=== PATIENT | female | born 1955 | race African-American/Black ===

== ENCOUNTER 2019-10-17 17:10 | Inpatient (IN) | payer MEDICARE, OTHER ==
[2019-10-17] MEDS ORDERED: ACETAMINOPHEN 325 MG TABLET PO ONE (17:58)
--- NOTE | 2019-10-17 18:25 | RADIOLOGY REPORT (SQ) ---
EXAM DESCRIPTION: HIP LEFT AP/LATERAL COMPLETED DATE/TIME: 10/17/2019 6:06 pm REASON FOR STUDY: fall COMPARISON: None. NUMBER OF VIEWS: Two views. TECHNIQUE: AP pelvis and additional frog-leg view of the left hip. LIMITATIONS: None. FINDINGS: MINERALIZATION: Normal. LEFT HIP: There is a low intertrochanteric fracture of the left hip RIGHT HIP: No fracture or dislocation. No worrisome bone lesions. PUBIS AND ISCHIUM: No fracture. PELVIS: No fracture. SACRUM: No fracture or dislocation. No worrisome bone lesions. LOWER LUMBAR SPINE: No fracture or dislocation. No worrisome bone lesions. No significant disc disea se. SOFT TISSUES: Calcified uterine fibroids. OTHER: No other significant finding. IMPRESSION: Low intertrochanteric fracture of the left hip. TECHNICAL DOCUMENTATION: JOB ID: [id number] 2010 [employer]- All Rights Reserved Reading location - IP/workstation name: [email or web address]
--- NOTE | 2019-10-17 18:26 | RADIOLOGY REPORT (SQ) ---
EXAM DESCRIPTION: FEMUR LEFT COMPLETED DATE/TIME: 10/17/2019 6:06 pm REASON FOR STUDY: fall COMPARISON: None. NUMBER OF VIEWS: Two views. TECHNIQUE: Two radiographic images acquired of the left femur to include hip and knee in at least on e projection. LIMITATIONS: None. FINDINGS: MINERALIZATION: Normal. BONES: Low intertrochanteric fracture of the left hip. No additional femoral fracture. SOFT TISSUES: No obvious swelling or foreign body. OTHER: No other significant finding. IMPRESSION: Left hip fracture. No additional femoral fracture. TECHNICAL DOCUMENTATION: JOB ID: [id number] 2010 [employer]- All Rights Reserved Reading location - IP/workstation name: [email or web address]
[2019-10-17] MEDS ORDERED: ONDANSETRON HCL INJ/PF 4 MG/2 ML SDV IV ONE (19:51)
[2019-10-17] MEDS ORDERED: MORPHINE SULFATE 10 MG/ML INJ IV ONE (19:51)
--- NOTE | 2019-10-17 19:58 | ER Document Report ---
ED Medical Screen (RME) - General Chief Complaint: Fall Stated Complaint: FALL/LEG PAIN Primary Care Provider: HIPOLITO MILLAN PA-C [Primary Care Provider] - Follow up as needed TRAVEL OUTSIDE OF THE [place] IN LAST 30 DAYS: No - HPI Notes: 10/17/19 19:58 64-year-old female with history of Parkinson to the emergency department via EMS with complaints of left hip pain. She was at her adult care today when she got hung up in a chair and fell down onto the left hip. No other injuries. No loss of consciousness. She is not on any blood thinners. She has not eaten since noon. She states that she feels most comfortable when her leg is propped with a pillow. I performed a brief medical screening exam on the patient determined that she will need further evaluation by me inside physician. Noted left lesser intertrochanteric hip fracture. Went ahead and ordered 4 mg of morphine and 4 mg of Zofran for the patient. Labs have been ordered. Advise family that attending physician will be in to see her shortly. - Related Data Allergies/Adverse Reactions: shellfish derived Allergy (Verified 10/17/19 17:38) Physical Exam - Vital signs Vitals: Temp Pulse Resp BP Pulse Ox 97.6 F 81 17 163/95 H 100 10/17/19 17:35 10/17/19 17:35 10/17/19 17:35 10/17/19 17:35 10/17/19 17:35 Course - Vital Signs Vital signs: Temp Pulse Resp BP Pulse Ox 97.6 F 81 17 163/95 H 100 10/17/19 17:35 10/17/19 17:35 10/17/19 17:35 10/17/19 17:35 10/17/19 17:35 Doctor's Discharge - Discharge Referrals: HIPOLITO MILLAN PA-C [Primary Care Provider] - Follow up as needed
--- NOTE | 2019-10-17 20:45 | ER Document Report ---
ED General - General Chief Complaint: Fall Stated Complaint: FALL/LEG PAIN Time Seen by Provider: 10/17/19 19:53 Primary Care Provider: HIPOLITO MILLAN PA-C [Primary Care Provider] - Follow up as needed TRAVEL OUTSIDE OF THE [place] IN LAST 30 DAYS: No - HPI Notes: Patient is a 64-year-old female with a history of Parkinson's disease. She was at the [facility] today when she tripped. She did not hit her head. She did not lose consciousness. She complains of pain in her left hip. She really cannot rate the pain for me. Otherwise, according the patient and family, she i s been eating and drinking well lately. No other acute complaints or concerns. She currently puts her pain at a 3 out of 5. - Related Data Allergies/Adverse Reactions: shellfish derived Allergy (Verified 10/17/19 17:38) Home Medications: Seroquel, Namenda, Aricept, carbidopa/levodopa Past Medical History - General Information source: Patient, Relative - Social History Smoking Status: Unknown if Ever Smoked Family History: Reviewed & Not Pertinent Patient has suicidal ideation: No Patient has homicidal ideation: No Neurological Medical History: Reports: Hx Parkinson's Disease Psychiatric Medical History: Reports: Hx Dementia Review of Systems - Review of Systems Musculoskeletal: See HPI -: Yes All other systems reviewed and negative Physical Exam - Vital signs Vitals: Temp Pulse Resp BP Pulse Ox 97.6 F 81 17 163/95 H 100 10/17/19 17:35 10/17/19 17:35 10/17/19 17:35 10/17/19 17:35 10/17/19 17:35 - Notes Notes: Is a very pleasant 64-year-old female who appears her stated age, no acute distress. She has the flat expression of Parkinson's, answers questions slowly, moves slowly. Vital signs reviewed, please refer to chart. Head is normocephalic, atraumatic. Pupils equal round, reactive to light. Neck is supple without meningismus. Heart is regular rate and rhythm. Lungs are clear to auscultation bilaterally. Abdomen is soft, nontender, normoactive bowel sounds throughout. Extremities without cyanosis, clubbing. Posterior calves are nontender. Peripheral pulses are equal. Patient has shortening and internal rotation of the left lower extremity. She is tender over the left greater trochanter. She has no bony tenderness to the lower femur or posterior calf. Neurovascularly intact distally. Skin is warm and dry. Course - Re-evaluation Re-evalutation: 10/17/19 20:44 This is a 64-year-old female who presents to the emergency department for evaluation after a fall. Her only known medical history is that of Parkinson's. She is given IV pain medication with some relief. Her imaging reveals intertrochanteric left hip fracture. She is neurovascularly intact distally. Preop clearance labs and EKG were ordered. Patient is stable at this time. Awaiting results. 10/17/19 21:54 Laboratory investigations largely unremarkable. Patient remained stable, her pain is improved after morphine. I spoke with Dr. Hooks, he will admit the patient for further care. - Vital Signs Vital signs: Temp Pulse Resp BP Pulse Ox 97.6 F 88 17 143/86 H 99 10/17/19 17:35 10/17/19 20:00 10/17/19 20:05 10/17/19 20:00 10/17/19 20:05 - Laboratory Result Diagrams: 10/17/19 20:21 10/17/19 20:21 Laboratory results interpreted by me: 10/17/19 10/17/19 20:21 20:21 WBC 14.8 H RDW 14.6 H Lymph % (Auto) 11.6 L [place] % (Auto) 16.8 H Absolute Neuts (auto) 10.5 H Absolute Monos (auto) 2.5 H Creatinine 0.51 L - Diagnostic Test Radiology reviewed: Reports reviewed Radiology results interpreted by me: 10/17/19 21:54 Femur X-Ray 10/17/19 17:47 IMPRESSION: Left hip fracture. No additional femoral fracture. Hip X-Ray 10/17/19 17:48 IMPRESSION: Low intertrochanteric fracture of the left hip. Discharge - Discharge Clinical Impression: Closed intertrochanteric fracture of left hip Condition: Stable Disposition: ADMITTED INPATIENT Admitting Provider: Dr. Hooks Unit Admitted: Medical Floor Referrals: HIPOLITO MILLAN PA-C [Primary Care Provider] - Follow up as needed
[2019-10-17 21:05] LABS: ABSOLUTE EOSINOPHILS # (AUTO) 0.1 10^3/uL (0.0-0.6); ABSOLUTE LYMPHOCYTES (AUTO) 1.7 10^3/uL (0.5-4.7); ABSOLUTE MONOCYTES (AUTO) 2.5 10^3/uL (0.1-1.4); ABSOLUTE NEUT (AUTO) 10.5 10^3/uL (1.7-8.2); BASOPHILS % (AUTO) 0.3 % (0-2); EOSINOPHILS % (AUTO) 0.4 % (0-6); HEMATOCRIT 41.4 % (36.0-47.0); HEMOGLOBIN 14.1 g/dL (12.0-15.5); LYMPHOCYTES % (AUTO) 11.6 % (13-45); MEAN CORPUSCULAR HEMOGLOBIN 27.4 pg (27.0-33.4); MEAN CORPUSCULAR VOLUME 81 fl (80-97); MONOCYTES % (AUTO) 16.8 % (3-13); PLATELET COUNT 188 10^3/uL (150-450); RED BLOOD COUNT 5.15 10^6/uL (3.72-5.28); RED CELL DISTRIBUTION WIDTH 14.6 % (11.5-14.0); SEGMENTED NEUTROPHILS % (AUTO) 70.9 % (42-78); TOTAL CELLS COUNTED % (AUTO) 100 %; WHITE BLOOD COUNT 14.8 10^3/uL (4.0-10.5)
[2019-10-17 21:16] LABS: ALBUMIN 4.2 g/dL (3.5-5.0); ALKALINE PHOSPHATASE 79 U/L (38-126); ANION GAP 9 (5-19); ASPARTATE AMINO TRANSFERASE 26 U/L (14-36); BILIRUBIN,DIRECT 0.3 mg/dL (0.0-0.4); BILIRUBIN,TOTAL 0.4 mg/dL (0.2-1.3); BLOOD UREA NITROGEN 10 mg/dL (7-20); CALCIUM 9.6 mg/dL (8.4-10.2); CARBON DIOXIDE 29 mmol/L (22-30); CHLORIDE 101 mmol/L (98-107); CREATINE KINASE 52 U/L (30-135); GLUCOSE 95 mg/dL (75-110); INTERNATIONAL RATION (INR) 1.11; PROTHROMBIN TIME 14.3 SEC (11.4-15.4); TOTAL PROTEIN 7.8 g/dL (6.3-8.2)
[2019-10-17] MEDS ORDERED: MORPHINE SULFATE 10 MG/ML INJ IV PRN (21:45)
[2019-10-17] MEDS ORDERED: DEXTROSE 5%-1/2 NORMAL SALINE 1,000 ML IV ONE (21:48)
[2019-10-18] MEDS ORDERED: ONDANSETRON 4 MG TAB.RAPDIS SL PRN (00:46)
[2019-10-18] MEDS: RINGERS SOLUTION,LACTATED 1,000 ML IV PRN ×3 (01:05→22:40)
[2019-10-18] MEDS ORDERED: INFLUENZA QUAD (6MOS+) 2019-20 VAC 0.5 ML SYR IM ONE (04:12)
[2019-10-18] MEDS: MORPHINE SULFATE 10 MG/ML INJ IV PRN ×2 (04:23→18:38)
--- NOTE | 2019-10-18 07:07 | PDOC H&P ---
History of Present Illness Admission Date/PCP: 10/17/19 22:33 HIPOLITO MILLAN PA-C History of Present Illness: SOCORRO BENSON is a 64 year old female 64-year-old black female who fell and sustained a left hip injury. She was brought to the emergency room where a intratrochanteric femur fracture was identified. She admitted to the orthopedic service for fracture management. Past Medical History Cardiac Medical History: Reports: None Pulmonary Medical History: Reports: None Neurological Medical History: Reports: Other - Parkinson's Endocrine Medical History: Reports: None Malignancy Medical History: Reports: None Psychiatric Medical History: Reports: None, Dementia Past Surgical History Past Surgical History: Reports: None Social History Information Source: Patient, [facility] Records Smoking Status: Unknown if Ever Smoked Electronic Cigarette use?: No Frequency of Alcohol Use: None Hx Recreational Drug Use: No Hx Prescription Drug Abuse: No - Advance Directive Resuscitation Status: Full Code Family History Family History: Reviewed & Not Pertinent Parental Family History Reviewed: No Children Family History Reviewed: No Sibling(s) Family History Reviewed.: No Medication/Allergy Home Medications: Carbidopa/Levodopa [Carbidopa-Levo 25-100 mg Odt] 1 each PO QID 10/18/19 Donepezil HCl 10 mg PO 10/18/19 Quetiapine Fumarate [Seroquel 25 mg Tablet] 25 mg PO QHS 10/18/19 Allergies/Adverse Reactions: shellfish derived Allergy (Verified 10/17/19 17:38) Review of Systems ROS unobtainable: Due to mental status Physical Exam Vital Signs: Temp Pulse Resp BP Pulse Ox 36.8 C 85 19 123/80 97 10/18/19 03:52 10/18/19 03:52 10/18/19 03:52 10/18/19 03:52 10/18/19 03:52 Intake & Output 10/17/19 10/18/19 10/19/19 06:59 06:59 06:59 Intake Total 197 Output Total 250 Balance -53 Weight 48.7 kg Physical Exam: Thin middle-aged black female lying in a hospital bed. Patient is nonresponsive to verbal stimuli. Eyes are open. General appearance: PRESENT: no acute distress Head exam: PRESENT: normocephalic Respiratory exam: PRESENT: unlabored Cardiovascular exam: PRESENT: RRR Pulses: PRESENT: +1 pedal pulses bilateral Vascular exam: PRESENT: normal capillary refill GI/Abdominal exam: PRESENT: soft Rectal exam: PRESENT: deferred Extremities exam: PRESENT: other - Left lower extremity rotated and shortened. There is brisk capillary refill. Results Laboratory Results: 10/17/19 20:21 10/17/19 20:21 10/17/19 10/17/19 20:21 20:21 WBC 14.8 H RBC 5.15 Hgb 14.1 Hct 41.4 MCV 81 MCH 27.4 MCHC 34.0 RDW 14.6 H Plt Count 188 Seg Neutrophils % 70.9 Sodium 139.3 Potassium 4.0 Chloride 101 Carbon Dioxide 29 Anion Gap 9 BUN 10 Creatinine 0.51 L Est GFR ( Amer) > 60 Glucose 95 Calcium 9.6 Total Bilirubin 0.4 AST 26 Alkaline Phosphatase 79 Total Protein 7.8 Albumin 4.2 10/17/19 10/17/19 20:21 20:21 Creatine Kinase 52 CK-MB (CK-2) 0.55 Impressions: Femur X-Ray 10/17/19 17:47 IMPRESSION: Left hip fracture. No additional femoral fracture. Hip X-Ray 10/17/19 17:48 IMPRESSION: Low intertrochanteric fracture of the left hip. Status: Imported from PACS Assessment & Plan - Diagnosis (1) Parkinsons disease Is this a current diagnosis for this admission?: Yes Plan: Baseline (2) Closed intertrochanteric fracture of left hip Qualifiers: Encounter type: initial encounter Fracture alignment: displaced Qualified Code(s): S72.142A - Displaced intertrochanteric fracture of left femur, initial encounter for closed fracture Is this a current diagnosis for this admission?: Yes Plan: Plan for open reduction internal fixation when OR is available and cleared by anesthesia - Time Time Spent: 50 to 70 Minutes Anticipated discharge: SNF Within: when bed available
[2019-10-18] MEDS ORDERED: CEFAZOLIN SODIUM 2 GM in DEXTROSE 5%-WATER 100 ML IV PRN (07:32)
[2019-10-18] MEDS ORDERED: TRANEXAMIC ACID INJ/PF 1,000 MG/10 ML SDV IV PRN (07:33)
[2019-10-18] MEDS ORDERED: BUPIVACAINE HCL 0.5%-EPI 1:200000 INJ/PF 30 ML VIAL ONE (13:35)
[2019-10-18] MEDS ORDERED: KETAMINE HCL INJ 500 MG/10 ML VIAL ONE (14:03)
[2019-10-18] MEDS ORDERED: PROPOFOL INJ 200 MG/20 ML VIAL IV ONE (14:04)
[2019-10-18] MEDS ORDERED: MIDAZOLAM 2 MG/2 ML INJ ONE (14:04)
[2019-10-18] MEDS ORDERED: ONDANSETRON HCL INJ/PF 4 MG/2 ML SDV ONE (14:04)
[2019-10-18] MEDS ORDERED: CEFAZOLIN INJ 1 GM VIAL ONE (14:32)
[2019-10-18] MEDS ORDERED: TRANEXAMIC ACID INJ/PF 1,000 MG/10 ML SDV ONE (14:39)
--- NOTE | 2019-10-18 16:01 | Operative Report ---
Operative Report DATE OF SURGERY: 10/18/19 PREOPERATIVE DIAGNOSIS: Left intratrochanteric femur fracture OPERATION: Open reduction internal fixation left intratrochanteric femur fracture SURGEON: KRISTEN LUDWIG ANESTHESIA: Spinal ESTIMATED BLOOD LOSS: [place] 5 PROCEDURE: With the patient supine on the fracture table the left lower extremities admitted to light under fluoroscopic guidance to effect a near anatomic reduction. Subsequently the lower extremities prepped and draped in a sterile fashion. A pin is placed percutaneously through the greater trochanter down into the proximal femoral metadiaphysis. A combined reamer is used to fashion a cortical opening. Hardware is removed. A ball-tipped guide rods placed down the femur. It is flexibly reamed until a 12 mm reamer is passed. Subsequently a Rogerson gamma 3 11 mm x 130 degree x 360 mm nail is a passed over the ball-tipped guide sara for a proximal interlock. A proximal interlock is placed with an 80 mm 10 mm screw. A distal interlock is placed with a 37.5 mm x 5 mm screw. The construct is again reviewed fluoroscopically both for fracture reduction hardware placement and felt to be adequate. Instrumentation was removed. Incisions irrigated with bulb lavage. The closure was erupted Vicryl followed by franklin. A sterile compressive dressing was applied and the patient was returned to the PACU in satisfactory condition.
[2019-10-18] MEDS ORDERED: ONDANSETRON 4 MG TAB.RAPDIS PO PRN (16:19)
--- NOTE | 2019-10-18 16:52 | RADIOLOGY REPORT (SQ) ---
EXAM DESCRIPTION: FEMUR LEFT; NO CHG FLUORO COMPLETED DATE/TIME: 10/18/2019 4:30 pm REASON FOR STUDY: HIP NAILING COMPARISON: None. FLUOROSCOPY TIME: 0.9 minutes Spot images saved to PACS. TECHNIQUE: Intra-operative images acquired during surgical procedure to evaluate progress. NUMBER OF IMAGES: 11 LIMITATIONS: None. FINDINGS: Fluoroscopy was provided for intraoperative procedure. Please refer to the operative repo rt for further discussion. IMPRESSION: IMAGE(S) OBTAINED DURING PROCEDURE. COMMENT: Quality ID [id number]: Final reports for procedures using fluoroscopy that document radiation exp osure indices, or exposure time and number of fluorographic images (if radiation exposure indices are not available) Please consult full operative report of the attending physician for description of the procedure. TECHNICAL DOCUMENTATION: JOB ID: [id number] 2010 [employer]- All Rights Reserved Reading location - IP/workstation name: [email or web address]
--- NOTE | 2019-10-18 16:52 | RADIOLOGY REPORT (SQ) ---
EXAM DESCRIPTION: FEMUR LEFT; NO CHG FLUORO COMPLETED DATE/TIME: 10/18/2019 4:30 pm REASON FOR STUDY: HIP NAILING COMPARISON: None. FLUOROSCOPY TIME: 0.9 minutes Spot images saved to PACS. TECHNIQUE: Intra-operative images acquired during surgical procedure to evaluate progress. NUMBER OF IMAGES: 11 LIMITATIONS: None. FINDINGS: Fluoroscopy was provided for intraoperative procedure. Please refer to the operative repo rt for further discussion. IMPRESSION: IMAGE(S) OBTAINED DURING PROCEDURE. COMMENT: Quality ID [id number]: Final reports for procedures using fluoroscopy that document radiation exp osure indices, or exposure time and number of fluorographic images (if radiation exposure indices are not available) Please consult full operative report of the attending physician for description of the procedure. TECHNICAL DOCUMENTATION: JOB ID: [id number] 2010 [employer]- All Rights Reserved Reading location - IP/workstation name: [email or web address]
--- NOTE | 2019-10-18 17:23 | EKG REPORT ---
SEVERITY:- BORDERLINE ECG - SINUS RHYTHM BORDERLINE R WAVE PROGRESSION, ANTERIOR LEADS BORDERLINE T ABNORMALITIES, ANTERIOR LEADS : Confirmed by: Mariann Kemp MD 18-Oct-2019 17:22:48
[2019-10-18] MEDS: ASPIRIN 81 MG TABLET, ENT COATED PO SCH (17:28)
[2019-10-18 18:44] LABS: HEMATOCRIT 37.4 % (36.0-47.0); HEMOGLOBIN 12.9 g/dL (12.0-15.5); MEAN CORPUSCULAR HEMOGLOBIN 27.8 pg (27.0-33.4); MEAN CORPUSCULAR HGB CONC 34.6 g/dL (32.0-36.0); MEAN CORPUSCULAR VOLUME 80 fl (80-97); PLATELET COUNT 164 10^3/uL (150-450); RED BLOOD COUNT 4.66 10^6/uL (3.72-5.28); RED CELL DISTRIBUTION WIDTH 14.5 % (11.5-14.0); WHITE BLOOD COUNT 12.4 10^3/uL (4.0-10.5)
[2019-10-18] MEDS: CEFAZOLIN SODIUM 2 GM in DEXTROSE 5%-WATER 100 ML IV SCH (22:28)
[2019-10-19] MEDS: MORPHINE SULFATE 10 MG/ML INJ IV PRN ×2 (04:39→15:17)
[2019-10-19] MEDS: RINGERS SOLUTION,LACTATED 1,000 ML IV PRN ×2 (04:40→21:29)
[2019-10-19] MEDS: CEFAZOLIN SODIUM 2 GM in DEXTROSE 5%-WATER 100 ML IV SCH (05:08)
--- NOTE | 2019-10-19 06:30 | PDOC PROGRESS REPORT ---
Subjective Progress Note for:: 10/19/19 Reason For Visit: CLOSED INTERTROCHANTERIC FRACTURE TO LEFT HIP 64-year-old black female now postop day 1 status post ORIF of a left intratrochanteric femur fracture. No events overnight. Daughter at bedside. Physical Exam Vital Signs: Temp Pulse Resp BP Pulse Ox 37.0 C 100 16 131/81 H 99 10/18/19 23:49 10/19/19 02:00 10/18/19 23:49 10/18/19 23:49 10/18/19 23:49 Intake & Output 10/17/19 10/18/19 10/19/19 06:59 06:59 06:59 Intake Total 197 4100 Output Total 250 900 Balance -53 3200 Weight 48.7 kg 46.1 kg Physical Exam: Patient resting comfortably General appearance: PRESENT: no acute distress, thin Respiratory exam: PRESENT: unlabored Cardiovascular exam: PRESENT: RRR Pulses: PRESENT: +1 pedal pulses bilateral Vascular exam: PRESENT: normal capillary refill GI/Abdominal exam: PRESENT: soft Rectal exam: PRESENT: deferred Musculoskeletal exam: PRESENT: other - Left lower extremity dressings clean dry and intact Results Laboratory Results: 10/18/19 18:29 10/18/19 18:29 WBC 12.4 H RBC 4.66 Hgb 12.9 Hct 37.4 MCV 80 MCH 27.8 MCHC 34.6 RDW 14.5 H Plt Count 164 10/17/19 10/17/19 20:21 20:21 Creatine Kinase 52 CK-MB (CK-2) 0.55 Impressions: Hip X-Ray 10/17/19 17:48 IMPRESSION: Low intertrochanteric fracture of the left hip. Femur X-Ray 10/18/19 00:00 IMPRESSION: IMAGE(S) OBTAINED DURING PROCEDURE. Fluoroscopy 10/18/19 00:00 IMPRESSION: IMAGE(S) OBTAINED DURING PROCEDURE. Status: Imported from PACS Assessment & Plan - Diagnosis (1) Parkinsons disease Is this a current diagnosis for this admission?: Yes (2) Closed intertrochanteric fracture of left hip Qualifiers: Encounter type: initial encounter Fracture alignment: displaced Qualified Code(s): S72.142A - Displaced intertrochanteric fracture of left femur, initial encounter for closed fracture Is this a current diagnosis for this admission?: Yes Plan: Mobilize with physical therapy and weightbearing as tolerated basis. Anticipate the need for senior living facility placement. - Time Time Spent with patient: 15-24 minutes Anticipated discharge: SNF Within: when bed available
[2019-10-19 06:54] LABS: ANION GAP 11 (5-19); BLOOD UREA NITROGEN 9 mg/dL (7-20); CALCIUM 8.6 mg/dL (8.4-10.2); CARBON DIOXIDE 24 mmol/L (22-30); CHLORIDE 102 mmol/L (98-107); GLUCOSE 94 mg/dL (75-110); POTASSIUM 3.7 mmol/L (3.6-5.0)
[2019-10-19] MEDS ORDERED: ACETAMINOPHEN 325 MG TABLET PO PRN ×2 (09:00→09:30)
[2019-10-19] MEDS ORDERED: ACETAMINOPHEN 650 MG SUPP.RECT PR PRN (09:30)
[2019-10-19] MEDS ORDERED: QUETIAPINE FUMARATE 25 MG TABLET PO PRN (14:06)
[2019-10-19] MEDS ORDERED: CARBIDOPA/LEVODOPA 25-100 MG TABLET PO SCH ×2 (14:30→22:00)
[2019-10-19] MEDS: CARBIDOPA/LEVODOPA 25-100 MG TABLET PO SCH (17:17)
[2019-10-19] MEDS: MEMANTINE HCL 10 MG TABLET PO SCH (17:19)
[2019-10-19] MEDS: ASPIRIN 81 MG TABLET, ENT COATED PO SCH (17:22)
[2019-10-19] MEDS ORDERED: (PENDING PHARMACY ID) (Memantine Hcl [Namenda] 5 MG) PO SCH (18:00)
[2019-10-20] MEDS: RINGERS SOLUTION,LACTATED 1,000 ML IV PRN (06:13)
[2019-10-20] MEDS: CARBIDOPA/LEVODOPA 25-100 MG TABLET PO SCH ×3 (06:14→17:25)
[2019-10-20] MEDS: MEMANTINE HCL 10 MG TABLET PO SCH ×2 (09:29→17:25)
[2019-10-20] MEDS: DONEPEZIL HCL 5 MG TABLET PO SCH (09:29)
[2019-10-20] MEDS ORDERED: (PENDING PHARMACY ID) (Donepezil Hcl [Donepezil Hcl] 10 MG) PO SCH (10:00)
--- NOTE | 2019-10-20 11:43 | PDOC TRANSFER SUMMARY ---
Impression - Admit/DC Date/PCP Admission Date/Primary Care Provider: 10/17/19 22:33 HIPOLITO MILLAN PA-C Discharge Date: 10/20/19 - Discharge Diagnosis (1) Parkinsons disease Is this a current diagnosis for this admission?: Yes (2) Closed intertrochanteric fracture of left hip Is this a current diagnosis for this admission?: Yes - Additional Information Resuscitation Status: Full Code Discharge Diet: Regular Discharge Activity: Balance Activity w/Rest, No tub bath Referrals: HIPOLITO MILLAN PA-C [Primary Care Provider] - Follow up as needed Home Medications: Donepezil HCl 10 mg PO DAILY 10/18/19 Memantine HCl [Namenda] 5 mg PO BID 10/18/19 Quetiapine Fumarate [Seroquel 25 mg Tablet] 25 mg PO HSP PRN MDD MAX OF 100MG 10/18/19 Carbidopa/Levodopa [Sinemet 25-100 mg Tablet] 1 each PO BID@0600,1200 10/19/19 Carbidopa/Levodopa [Sinemet 25-100 mg Tablet] 2 each PO QPM 10/19/19 History of Present Illiness History of Present Illness: 64-year-old black female who fell at home and sustained a left hip injury. She was brought to the emergency room where displaced left intratrochanteric femur fracture was identified. She is admitted to the orthopedic service for fracture management. Hospital Course Hospital Course: Patient is taken to the operating room on the day following admission and undergoes uncomplicated open reduction internal fixation of the left intratrochanteric femur fracture. She is returned to the floor in satisfactory condition. Progress with physical therapy is relatively limited. Physical Exam Vital Signs: Temp Pulse Resp BP Pulse Ox 36.4 C 91 18 135/85 H 96 10/20/19 08:28 10/20/19 08:28 10/20/19 08:28 10/20/19 08:28 10/20/19 08:28 Intake & Output 10/19/19 10/20/19 10/21/19 06:59 06:59 06:59 Intake Total 4100 2400 Output Total 900 Balance 3200 2400 Weight 46.1 kg 47.2 kg General appearance: PRESENT: no acute distress, thin Head exam: PRESENT: normocephalic Respiratory exam: PRESENT: unlabored Cardiovascular exam: PRESENT: RRR Pulses: PRESENT: +1 pedal pulses bilateral Vascular exam: PRESENT: normal capillary refill GI/Abdominal exam: PRESENT: soft Rectal exam: PRESENT: deferred Musculoskeletal exam: PRESENT: other - Left lower extremity dressings are clean dry and intact. Leg lengths equal. Minimal pedal edema. Neurological exam: PRESENT: awake Skin exam: PRESENT: dry, intact, warm. ABSENT: cyanosis, rash Results Laboratory Results: WBC 12.4 10^3/uL (4.0-10.5) H 10/18/19 18:29 RBC 4.66 10^6/uL (3.72-5.28) 10/18/19 18:29 Hgb 12.9 g/dL (12.0-15.5) 10/18/19 18: Hct 37.4 % (36.0-47.0) 10/18/19 18: MCV 80 fl (80-97) 10/18/19 18: MCH 27.8 pg (27.0-33.4) 10/18/19 18: MCHC 34.6 g/dL (32.0-36.0) 10/18/19 18: RDW 14.5 % (11.5-14.0) H 10/18/19 18: Plt Count 164 10^3/uL (150-450) 10/18/19 18: Lymph % (Auto) 11.6 % (13-45) L 10/17/19 20:21 [place] % (Auto) 16.8 % (3-13) H 10/17/19 20:21 Eos % (Auto) 0.4 % (0-6) 10/17/19 20:21 Baso % (Auto) 0.3 % (0-2) 10/17/19 20:21 Absolute Neuts (auto) 10.5 10^3/uL (1.7-8.2) H 10/17/19 20:21 Absolute Lymphs (auto) 1.7 10^3/uL (0.5-4.7) 10/17/19 20:21 Absolute Monos (auto) 2.5 10^3/uL (0.1-1.4) H 10/17/19 20:21 Absolute Eos (auto) 0.1 10^3/uL (0.0-0.6) 10/17/19 20:21 Absolute Basos (auto) 0.0 10^3/uL (0.0-0.2) 10/17/19 20:21 Seg Neutrophils % 70.9 % (42-78) 10/17/19 20:21 PT 14.3 SEC (11.4-15.4) 10/17/19 20:21 INR 1.11 10/17/19 20:21 Sodium 136.8 mmol/L (137-145) L 10/19/19 05:44 Potassium 3.7 mmol/L (3.6-5.0) 10/19/19 05:44 Chloride 102 mmol/L (98-107) 10/19/19 05:44 Carbon Dioxide 24 mmol/L (22-30) 10/19/19 05:44 Anion Gap 11 (5-19) 10/19/19 05:44 BUN 9 mg/dL (7-20) 10/19/19 05:44 Creatinine 0.56 mg/dL (0.52-1.25) 10/19/19 05:44 Est GFR ( Amer) > 60 (>60) 10/19/19 05:44 Est GFR (MDRD) Non-Af > 60 (>60) 10/19/19 05:44 Glucose 94 mg/dL (75-110) 10/19/19 05:44 POC Glucose 92 mg/dL (70-110) 10/18/19 11:41 Calcium 8.6 mg/dL (8.4-10.2) 10/19/19 05:44 Total Bilirubin 0.4 mg/dL (0.2-1.3) 10/17/19 20:21 Direct Bilirubin 0.3 mg/dL (0.0-0.4) 10/17/19 20:21 Neonat Total Bilirubin Not Reportable 10/17/19 20:21 Neonat Direct Bilirubin Not Reportable 10/17/19 20:21 Neonat Indirect Bili Not Reportable 10/17/19 20:21 AST 26 U/L (14-36) 10/17/19 20:21 ALT 9 U/L (<35) 10/17/19 20:21 Alkaline Phosphatase 79 U/L (38-126) 10/17/19 20:21 Creatine Kinase 52 U/L (30-135) 10/17/19 20:21 CK-MB (CK-2) 0.55 ng/mL (<4.55) 10/17/19 20:21 Total Protein 7.8 g/dL (6.3-8.2) 10/17/19 20:21 Albumin 4.2 g/dL (3.5-5.0) 10/17/19 20:21 10/17/19 20:21 CK-MB (CK-2) 0.55 Impressions: Femur X-Ray 10/17/19 17:47 IMPRESSION: Left hip fracture. No additional femoral fracture. Hip X-Ray 10/17/19 17:48 IMPRESSION: Low intertrochanteric fracture of the left hip. Femur X-Ray 10/18/19 00:00 IMPRESSION: IMAGE(S) OBTAINED DURING PROCEDURE. Fluoroscopy 10/18/19 00:00 IMPRESSION: IMAGE(S) OBTAINED DURING PROCEDURE. Plan Plan of Treatment: Patient can be weightbearing as tolerated with physical therapy. Follow-up with Dr. Hooks and [facility] for surgery in 2 weeks for staple removal. Stroke Is this a Stroke Patient?: No Stroke Pt being discharged on Anti-thrombolytic therapy?: Yes Acute Heart Failure - Is this a Heart Failure Patient?: No
[2019-10-20] MEDS: TRAMADOL HCL 50 MG TABLET PO PRN ×2 (15:05→21:43)
[2019-10-20] MEDS: ASPIRIN 81 MG TABLET, ENT COATED PO SCH (17:25)
[2019-10-20 23:13] LABS: APPEARANCE,URINE CLEAR; BILIRUBIN,URINE NEGATIVE (NEGATIVE); COLOR,URINE YELLOW; GLUCOSE, URINE NEGATIVE (NEGATIVE); KETONES,URINE TRACE mg/dL (NEGATIVE); LEUKOCYTE ESTERASE,URINE NEGATIVE (NEGATIVE); NITRITE,URINE NEGATIVE (NEGATIVE); PROTEIN,URINE NEGATIVE (NEGATIVE); URINE SPECIFIC GRAVITY 1.012
--- NOTE | 2019-10-20 23:18 | RADIOLOGY REPORT (SQ) ---
EXAM DESCRIPTION: XR CHEST 1 VIEW COMPLETED DATE/TME: 10/20/2019 22:39 CLINICAL HISTORY: 64 years Female, change in vitals COMPARISON: None. NUMBER OF VIEWS/TECHNIQUE: 1/AP FINDINGS: Increased lung volume, clear parenchyma, normal cardiac silhouette, and intact bony thorax.Atherosclerotic vascular disease. IMPRESSION: No acute cardiopulmonary findings.
[2019-10-21] MEDS: CARBIDOPA/LEVODOPA 25-100 MG TABLET PO SCH ×5 (05:10→19:30)
--- NOTE | 2019-10-21 06:15 | PDOC PROGRESS REPORT ---
Subjective Progress Note for:: 10/21/19 Reason For Visit: CLOSED INTERTROCHANTERIC FRACTURE TO LEFT HIP 64 yo BF s/p ORIF L hip fx. Low grade temp o/n. CXR, UA neg Physical Exam Vital Signs: Temp Pulse Resp BP Pulse Ox 36.9 C 95 16 117/80 94 10/21/19 03:33 10/21/19 03:33 10/21/19 03:33 10/21/19 03:33 10/21/19 03:33 Intake & Output 10/19/19 10/20/19 10/21/19 06:59 06:59 06:59 Intake Total 4100 2400 1371 Output Total 900 Balance 3200 2400 1371 Weight 46.1 kg 47.2 kg 44.7 kg Results Laboratory Results: 10/18/19 18:29 10/19/19 05:44 10/20/19 22:41 Urine Color YELLOW Urine Appearance CLEAR Urine pH 7.0 Ur Specific [place] 1.012 Urine Protein NEGATIVE Urine Glucose (UA) NEGATIVE Urine Ketones TRACE H Urine Blood NEGATIVE Urine Nitrite NEGATIVE Ur Leukocyte Esterase NEGATIVE Urine WBC (Auto) 6 Urine RBC (Auto) 1 10/17/19 10/17/19 20:21 20:21 Creatine Kinase 52 CK-MB (CK-2) 0.55 Impressions: Hip X-Ray 10/17/19 17:48 IMPRESSION: Low intertrochanteric fracture of the left hip. Femur X-Ray 10/18/19 00:00 IMPRESSION: IMAGE(S) OBTAINED DURING PROCEDURE. Fluoroscopy 10/18/19 00:00 IMPRESSION: IMAGE(S) OBTAINED DURING PROCEDURE. Chest X-Ray 10/20/19 22:39 IMPRESSION: No acute cardiopulmonary findings. Status: Imported from PACS Assessment & Plan - Diagnosis (1) Parkinsons disease Is this a current diagnosis for this admission?: Yes (2) Closed intertrochanteric fracture of left hip Qualifiers: Encounter type: initial encounter Fracture alignment: displaced Qualified Code(s): S72.142A - Displaced intertrochanteric fracture of left femur, initial encounter for closed fracture Is this a current diagnosis for this admission?: Yes Plan: mobilize with PT WBAT - Time Time Spent with patient: 15-24 minutes Anticipated discharge: SNF Within: when bed available
[2019-10-21] MEDS ORDERED: NALOXONE HCL INJ/PF 0.4 MG/1 ML SDV ONE (06:35)
[2019-10-21] MEDS ORDERED: NALOXONE HCL INJ 2 MG/2 ML DISP.SYRIN IV ONE (06:45)
[2019-10-21 06:58] LABS: HEMATOCRIT 31.8 % (36.0-47.0); HEMOGLOBIN 10.9 g/dL (12.0-15.5); MEAN CORPUSCULAR HEMOGLOBIN 27.5 pg (27.0-33.4); MEAN CORPUSCULAR HGB CONC 34.2 g/dL (32.0-36.0); MEAN CORPUSCULAR VOLUME 80 fl (80-97); PLATELET COUNT 152 10^3/uL (150-450); RED BLOOD COUNT 3.96 10^6/uL (3.72-5.28); RED CELL DISTRIBUTION WIDTH 14.2 % (11.5-14.0); WHITE BLOOD COUNT 11.7 10^3/uL (4.0-10.5)
[2019-10-21] MEDS ORDERED: NALOXONE HCL INJ/PF 0.4 MG/1 ML SDV IV ONE (07:00)
[2019-10-21 07:17] LABS: ALBUMIN 3.1 g/dL (3.5-5.0); ALKALINE PHOSPHATASE 64 U/L (38-126); ASPARTATE AMINO TRANSFERASE 29 U/L (14-36); BILIRUBIN,TOTAL 0.6 mg/dL (0.2-1.3); BLOOD UREA NITROGEN 5 mg/dL (7-20); CALCIUM 8.4 mg/dL (8.4-10.2); CARBON DIOXIDE 28 mmol/L (22-30); CHLORIDE 106 mmol/L (98-107); CREATINE KINASE 426 U/L (30-135); GLUCOSE 99 mg/dL (75-110); POTASSIUM 3.8 mmol/L (3.6-5.0); TOTAL PROTEIN 6.1 g/dL (6.3-8.2)
[2019-10-21 07:23] LABS: ABSOLUTE LYMPHOCYTES# (MANUAL) 4.7 10^3/uL (0.5-4.7); ABSOLUTE MONOCYTES # (MANUAL) 1.4 10^3/uL (0.1-1.4); BASOPHILS % (MANUAL) 0 % (0-2); EOSINOPHILS % (MANUAL) 0 % (0-6); LYMPHOCYTES % (MANUAL) 14 % (13-45); MONOCYTES % (MANUAL) 12 % (3-13); SEGMENTED NEUTROPHILS % (MAN) 48 % (42-78); TOTAL CELLS COUNTED 100
[2019-10-21 07:24] LABS: PLATELET COMMENT ADEQUATE; RBC MORPHOLOGY COMMENT NORMO-CYTIC/CHROMIC; TOXIC VACUOLATION PRESENT
[2019-10-21 07:27] LABS: ANION GAP 4 (5-19)
[2019-10-21 07:41] LABS: TROPONIN I < 0.012 ng/mL
--- NOTE | 2019-10-21 07:45 | RADIOLOGY REPORT (SQ) ---
EXAM DESCRIPTION: CT HEAD WITHOUT IV CONTRAST COMPLETED DATE/TME: 10/21/2019 06:39 CLINICAL HISTORY: 64 years, Female, Change LOC COMPARISON: None. TECHNIQUE: Axial CT images of the brain were obtained without contrast. Sagittal and coronal reformats were performed. [facility] 1203 Images stored on PACS. All CT scanners at this facility use dose modulation, iterative reconstruction, and/or weight based dosing when appropriate to reduce radiation dose to as low as reasonably achievable (ALARA). [facility]: Dose Right [facility]: CareDose [facility]: Dose Right [facility]: Teradose 4D [facility]: [employer] LIMITATIONS: None. FINDINGS: There is no acute cortical infarct, hemorrhage, mass, edema, hydrocephalus, or extra-axial fluid collection. The cantor-white matter differentiation is preserved. There is mild diffuse cerebral atrophy with mild periventricular and deep white matter chronic microvascular changes. The paranasal sinuses and mastoid air cells are clear. There is no acute fracture. IMPRESSION: No acute intracranial abnormality TECHNICAL DOCUMENTATION: Quality ID # 436: Final reports with documentation of one or more dose reduction techniques (e.g., Automated exposure control, adjustment of the mA and/or kV according to patient size, use of iterative reconstruction technique) copyright 2011 248 [employer]- All Rights Reserved
[2019-10-21] MEDS: MEMANTINE HCL 10 MG TABLET PO SCH ×4 (10:35→19:30)
[2019-10-21] MEDS: DONEPEZIL HCL 5 MG TABLET PO SCH (10:36)
[2019-10-21 13:24] LABS: CREATINE KINASE MB 0.76 ng/mL (<4.55)
[2019-10-21 13:29] LABS: TROPONIN I < 0.012 ng/mL
[2019-10-21] MEDS: ASPIRIN 81 MG TABLET, ENT COATED PO SCH ×3 (18:22→19:29)
[2019-10-21 19:55] LABS: CREATINE KINASE MB 0.81 ng/mL (<4.55)
[2019-10-21 19:56] LABS: TROPONIN I < 0.012 ng/mL
[2019-10-21] MEDS: QUETIAPINE FUMARATE 100 MG TABLET PO PRN (20:55)
[2019-10-21] MEDS: RINGERS SOLUTION,LACTATED 1,000 ML IV PRN (21:17)
--- NOTE | 2019-10-22 06:47 | PDOC PROGRESS REPORT ---
Subjective Progress Note for:: 10/22/19 Reason For Visit: CLOSED INTERTROCHANTERIC FRACTURE TO LEFT HIP 64-year-old black female status post open reduction internal fixation of a left intratrochanteric lecture. Events yesterday at approximately 630 are noted with a change in mental status. Agnes Cespedes's note indicates that I was contacted and on did not respond. There is no message on my phone nor is her any record of a call going through the hospital rotary pump operator at that time. Patient underwent a laboratory evaluation which was entirely normal and a head CT scan ordered by Dr. Rios did the head CT scan demonstrated no acute changes. The events yesterday are primarily what seems to be a change in mental status. He reports to me this morning that the patient's alert and oriented in terms of place and events. The family is quite concerned about the patient's change in mental status, lack of appetite, and constipation. The patient has been restarted on maintenance IV fluids. Physical Exam Vital Signs: Temp Pulse Resp BP Pulse Ox 36.7 C 101 H 18 147/89 H 97 10/22/19 03:36 10/22/19 03:36 10/22/19 03:36 10/22/19 03:36 10/22/19 03:36 Intake & Output 10/20/19 10/21/19 10/22/19 06:59 06:59 06:59 Intake Total 2400 1371 1300 Balance 2400 1371 1300 Weight 47.2 kg 44.7 kg 44.7 kg General appearance: PRESENT: no acute distress Head exam: PRESENT: normocephalic Respiratory exam: PRESENT: unlabored Cardiovascular exam: PRESENT: RRR Pulses: PRESENT: +1 pedal pulses bilateral Vascular exam: PRESENT: normal capillary refill GI/Abdominal exam: PRESENT: soft Rectal exam: PRESENT: deferred Extremities exam: PRESENT: other - Left lower extremity incisions are clean dry and intact with franklin. Neurological exam: PRESENT: awake Results Laboratory Results: 10/21/19 06:42 10/21/19 06:42 10/21/19 10/21/19 10/21/19 06:42 06:42 06:42 WBC 11.7 H RBC 3.96 Hgb 10.9 L Hct 31.8 L MCV 80 MCH 27.5 MCHC 34.2 RDW 14.2 H Plt Count 152 Seg Neutrophils % Not Reportable Sodium 138.3 Potassium 3.8 Chloride 106 Carbon Dioxide 28 Anion Gap 4 L BUN 5 L Creatinine 0.44 L Est GFR ( Amer) > 60 Glucose 99 Calcium 8.4 Magnesium 2.1 Total Bilirubin 0.6 AST 29 Alkaline Phosphatase 64 Total Protein 6.1 L Albumin 3.1 L 10/17/19 10/17/19 10/21/19 20:21 20:21 06:42 Creatine Kinase 52 426 H CK-MB (CK-2) 0.55 Troponin I 10/21/19 10/21/19 10/21/19 06:42 12:47 12:47 Creatine Kinase 391 H CK-MB (CK-2) 1.00 0.76 Troponin I < 0.012 < 0.012 10/21/19 10/21/19 18:33 18:33 Creatine Kinase 381 H CK-MB (CK-2) 0.81 Troponin I < 0.012 Impressions: Hip X-Ray 10/17/19 17:48 IMPRESSION: Low intertrochanteric fracture of the left hip. Femur X-Ray 10/18/19 00:00 IMPRESSION: IMAGE(S) OBTAINED DURING PROCEDURE. Fluoroscopy 10/18/19 00:00 IMPRESSION: IMAGE(S) OBTAINED DURING PROCEDURE. Chest X-Ray 10/20/19 22:39 IMPRESSION: No acute cardiopulmonary findings. Head CT 10/21/19 06:39 IMPRESSION: No acute intracranial abnormality TECHNICAL DOCUMENTATION: Quality ID # 436: Final reports with documentation of one or more dose reduction techniques (e.g., Automated exposure control, adjustment of the mA and/or kV according to patient size, use of iterative reconstruction technique) copyright 2011 [employer]- All Rights Reserved Status: Imported from PACS Assessment & Plan - Diagnosis (1) Parkinsons disease Is this a current diagnosis for this admission?: Yes (2) Closed intertrochanteric fracture of left hip Qualifiers: Encounter type: initial encounter Fracture alignment: displaced Qualified Code(s): S72.142A - Displaced intertrochanteric fracture of left femur, initial encounter for closed fracture Is this a current diagnosis for this admission?: Yes Plan: This morning I spoke with the patient's daughter who is at bedside and her brother by telephone. The patient remains afebrile for greater than 36 hours. Issues yesterday morning are noted. Discrepancies noted in the chart should be amended and corrected with in terms of orders and nursing notes.. At this point we will discontinue the use of tramadol. The family is quite concerned about this saying she is in pain. However I think if the tramadol is contributing to her mental status changes that she can get by with Tylenol. We will continue to mobilize with physical therapy and weightbearing as tolerated basis although she was not seen by physical therapy yesterday. Tentative plan will be for longterm facility placement - Time Time Spent with patient: 15-24 minutes Anticipated discharge: SNF Within: when bed available
[2019-10-22] MEDS: CARBIDOPA/LEVODOPA 25-100 MG TABLET PO SCH ×3 (06:55→18:34)
[2019-10-22] MEDS ORDERED: MAGNESIUM CITRATE 296 ML BOTTLE PO ONE (07:30)
[2019-10-22] MEDS: MEMANTINE HCL 10 MG TABLET PO SCH ×2 (08:10→18:34)
[2019-10-22] MEDS: RINGERS SOLUTION,LACTATED 1,000 ML IV PRN ×3 (08:20→23:14)
[2019-10-22] MEDS: ASPIRIN 81 MG TABLET, ENT COATED PO SCH (18:33)
[2019-10-22] MEDS: QUETIAPINE FUMARATE 100 MG TABLET PO PRN (18:34)
[2019-10-22] MEDS: ACETAMINOPHEN 325 MG TABLET PO PRN (18:34)
[2019-10-23 05:42] LABS: HEMATOCRIT 28.8 % (36.0-47.0); HEMOGLOBIN 10.3 g/dL (12.0-15.5); MEAN CORPUSCULAR HEMOGLOBIN 28.5 pg (27.0-33.4); MEAN CORPUSCULAR HGB CONC 35.7 g/dL (32.0-36.0); MEAN CORPUSCULAR VOLUME 80 fl (80-97); PLATELET COUNT 191 10^3/uL (150-450); RED BLOOD COUNT 3.61 10^6/uL (3.72-5.28); WHITE BLOOD COUNT 8.9 10^3/uL (4.0-10.5)
[2019-10-23] MEDS: ACETAMINOPHEN 325 MG TABLET PO PRN (06:12)
[2019-10-23] MEDS: CARBIDOPA/LEVODOPA 25-100 MG TABLET PO SCH ×3 (06:13→17:33)
[2019-10-23] MEDS: MEMANTINE HCL 10 MG TABLET PO SCH ×2 (06:13→17:33)
[2019-10-23] MEDS ORDERED: DONEPEZIL HCL 5 MG TABLET PO SCH (07:00)
[2019-10-23] MEDS ORDERED: BISACODYL 5 MG TABEC PO ONE (07:15)
[2019-10-23 16:39] VITALS: BP 168/102
[2019-10-23] MEDS: ASPIRIN 81 MG TABLET, ENT COATED PO SCH (17:33)
[2019-10-23] MEDS: QUETIAPINE FUMARATE 100 MG TABLET PO PRN (18:52)
== END 2019-10-23 20:06 | DRG 482 ==
LOC: ER 17:10 → EH 22:33 → 3W 10-18 03:18
PROVIDERS: ADMIT Orthopaedic Surgery; ATTEND Orthopaedic Surgery
PROC: 0QS706Z Reposition Left Upper Femur with Intramedullary Internal Fixation Device, Open Approach (ICD-10-PCS; principal; 2019-10-18 13:30)
DX: S72.102A Unspecified trochanteric fracture of left femur, initial encounter for closed fracture (principal); W01.0XXA Fall on same level from slipping, tripping and stumbling without subsequent striking against object, initial encounter; Y92.838 Other recreation area as the place of occurrence of the external cause; G20 Parkinson's disease; K59.00 Constipation, unspecified; R41.82 Altered mental status, unspecified; T40.4X5A Adverse effect of other synthetic narcotics, initial encounter; Y92.230 Patient room in hospital as the place of occurrence of the external cause; Z91.013 Allergy to seafood
CPT/HCPCS: 01230; 36415; 70450; 71045; 80048; 80053; 81001; 82550; 82553; 82962; 83735; 84484; 85025; 85027; 85610; 93005; 93010; 96374; 96375; 99285; C1713; C1769; J0690; J2250; J2270; J2310; J2405; J2704; J3490; J7060; J7120

== ENCOUNTER 2020-05-16 16:31 | Inpatient (IN) | payer MEDICARE, OTHER ==
[2020-05-16] MEDS ORDERED: NORMAL SALINE 1000 ML 1,000 ML IV ONE (17:16)
[2020-05-16] MEDS ORDERED: ACETAMINOPHEN 650 MG SUPP.RECT PR ONE (17:18)
[2020-05-16] MEDS ORDERED: PIPERACILLIN/TAZOBACTAM 3.375 GM VIAL IV ONE (17:32)
[2020-05-16 17:33] LABS: INTERNATIONAL RATION (INR) 1.21; PROTHROMBIN TIME 15.5 SEC (11.4-15.4)
[2020-05-16] MEDS ORDERED: NORMAL SALINE 250 ML IV ONE (17:37)
[2020-05-16] MEDS ORDERED: VANCOMYCIN HCL INJ 1000 MG VIAL IV ONE (17:37)
[2020-05-16 17:40] LABS: HEMOGLOBIN 13.9 g/dL (12.0-15.5); MEAN CORPUSCULAR HEMOGLOBIN 25.7 pg (27.0-33.4); MEAN CORPUSCULAR VOLUME 78 fl (80-97); PLATELET COUNT 294 10^3/uL (150-450); RED BLOOD COUNT 5.38 10^6/uL (3.72-5.28); RED CELL DISTRIBUTION WIDTH 14.5 % (11.5-14.0); WHITE BLOOD COUNT 12.2 10^3/uL (4.0-10.5)
[2020-05-16 17:49] LABS: ALBUMIN 3.4 g/dL (3.5-5.0); ALKALINE PHOSPHATASE 73 U/L (38-126); ANION GAP 15 (5-19); ASPARTATE AMINO TRANSFERASE 45 U/L (14-36); BILIRUBIN,DIRECT 0.4 mg/dL (0.0-0.4); BILIRUBIN,TOTAL 0.6 mg/dL (0.2-1.3); BLOOD UREA NITROGEN 33 mg/dL (7-20); CALCIUM 9.5 mg/dL (8.4-10.2); CARBON DIOXIDE 22 mmol/L (22-30); CHLORIDE 103 mmol/L (98-107); GLUCOSE 219 mg/dL (75-110); TOTAL PROTEIN 6.7 g/dL (6.3-8.2)
[2020-05-16 17:50] LABS: VENOUS BLOOD HCO3 18.8 mmol/L (20-32); VENOUS BLOOD PCO2 25.8 mmHg (35-63); VENOUS BLOOD PH 7.48 (7.30-7.42)
[2020-05-16 18:07] LABS: BASOPHILS % (MANUAL) 0 % (0-2); EOSINOPHILS % (MANUAL) 0 % (0-6); TOTAL CELLS COUNTED 100
--- NOTE | 2020-05-16 18:07 | RADIOLOGY REPORT (SQ) ---
EXAM DESCRIPTION: CHEST SINGLE VIEW IMAGES COMPLETED DATE/TIME: 05/16/2020 5:42 pm REASON FOR STUDY: sepsis COMPARISON: 10/20/2019 EXAM PARAMETERS: NUMBER OF VIEWS: One view. TECHNIQUE: Single frontal radiographic view of the chest acquired. RADIATION DOSE: NA LIMITATIONS: None. FINDINGS: LUNGS AND PLEURA: No opacities, masses or pneumothorax. No pleural effusion. MEDIASTINUM AND HILAR STRUCTURES: No masses. Contour normal. HEART AND VASCULAR STRUCTURES: Heart normal in size. Normal vasculature. BONES: No acute findings. HARDWARE: None in the chest. OTHER: No other significant finding. IMPRESSION: NO ACUTE RADIOGRAPHIC FINDING IN THE CHEST. TECHNICAL DOCUMENTATION: JOB ID: [id number] 2010 [employer]- All Rights Reserved Reading location - IP/workstation name: [email or web address]
[2020-05-16 18:08] LABS: TOXIC GRANULATION SLIGHT; TOXIC VACUOLATION PRESENT
[2020-05-16 18:09] LABS: ANISOCYTOSIS SLIGHT; PLATELET COMMENT ADEQUATE
--- NOTE | 2020-05-16 19:10 | ER Document Report ---
ED General - General Stated Complaint: ALTERED MENTAL STATUS Time Seen by Provider: 05/16/20 17:16 Cannot obtain history due to: Altered mental status TRAVEL OUTSIDE OF THE [place] IN LAST 30 DAYS: No - HPI Onset: This morning Notes: Patient is a 65-year-old female with a past medical history of Parkinson's disease and sacral ulcer who presents with altered mental status and fever. History is obtained from her brother who is her caregiver. He states that patient was less responsive today. Wound care came to their house and she had a fever so they recommended that she be brought to the ER. Her brother states that she has been following up with wound care in the office and they stated that the ulcer was improving. Her brother states it has been there since March. She has also been started on Augmentin on Wednesday which she is currently taking from wound care. - Related Data Allergies/Adverse Reactions: shellfish derived Allergy (Verified 10/17/19 17:38) Past Medical History - General Information source: Relative - Social History Smoking Status: Unknown if Ever Smoked Family History: Reviewed & Not Pertinent Neurological Medical History: Reports: Hx Parkinson's Disease Psychiatric Medical History: Reports: Hx Dementia Review of Systems - Review of Systems -: Yes ROS unobtainable due to patient's medical condition Constitutional: Fever Skin: Other - Sacral ulcer on right Physical Exam - Vital signs Vitals: Resp Pulse Ox 23 H 99 05/16/20 16:43 05/16/20 16:43 - Notes Notes: VITAL SIGNS: Fever, tachycardic GENERAL: Appears ill. HEAD: Normal with no signs of head trauma. EYES: Conjunctiva normal, no discharge. EARS: Hearing grossly intact. NOSE: Normal. NECK: Normal range of motion, no tenderness, supple, no lymphadenopathy, No adenopathy, no JVD. CHEST: Clear breath sounds bilaterally. No wheezes, rales, or rhonchi. CARDIAC: Regular rate and rhythm. S1 and S2, without murmurs, gallops, or rubs. VASCULAR: No Edema. ABDOMEN: Normal and soft with no tenderness GENITOURINARY: Normal, No tenderness LYMPATHTIC: No lymphadenopathy noted. NEUROLOGICAL: Alert to person. PSYCHIATRIC: Normal Affect, judgement and mood. SKIN: Deep sacral decubitus ulcer on the right buttock. Course - Re-evaluation Re-evalutation: 05/16/20 19:13 Brother states that patient has not been acting normally today and appears fatigued. Patient meets sepsis criteria. This could be from the sacral ulcer. She is febrile and tachycardic. Patient also has a lactic acidosis. She was immediately ordered fluids and broad-spectrum antibiotics. I will obtain a CT of her pelvis to see how deep the ulcer is. Patient will need to be admitted. I discussed this with the brother and patient. Brother states that patient is a DNR/DNI. CT scan did not see any fistulization or abscess around the ulcer. Patient's heart rate has improved to the low 100s. Her fever and lactic acidosis has also improved. I discussed with the hospitalist who will admit the patient. I also called patient's brother on the phone and updated him on the plan. 05/17/20 01:09 05/17/20 01:11 - Vital Signs Vital signs: Temp Pulse Resp BP Pulse Ox 100.8 F H 120 H 31 H 94/72 L 98 05/16/20 19:45 05/16/20 16:58 05/17/20 00:31 05/17/20 00:31 05/17/20 00:31 - Laboratory Result Diagrams: 05/16/20 16:08 05/16/20 16:08 Laboratory results interpreted by me: 05/16/20 05/16/20 05/16/20 16:08 16:08 16:08 WBC 12.2 H RBC 5.38 H MCV 78 L MCH 25.7 L RDW 14.5 H Lymphocytes % (Manual) 10 L Immature Leukocytes % 14 H Abs Neuts (Manual) 8.3 H PT 15.5 H VBG pH VBG pCO2 VBG HCO3 BUN 33 H Glucose 219 H POC Glucose Lactic Acid AST 45 H Albumin 3.4 L Urine Protein Urine Urobilinogen Urine Ascorbic Acid 05/16/20 05/16/20 05/16/20 16:50 17:28 18:04 WBC RBC MCV MCH RDW Lymphocytes % (Manual) Immature Leukocytes % Abs Neuts (Manual) PT VBG pH 7.48 H VBG pCO2 25.8 L VBG HCO3 18.8 L BUN Glucose POC Glucose 151 H Lactic Acid 3.8 H AST Albumin Urine Protein Urine Urobilinogen Urine Ascorbic Acid 05/16/20 20:30 WBC RBC MCV MCH RDW Lymphocytes % (Manual) Immature Leukocytes % Abs Neuts (Manual) PT VBG pH VBG pCO2 VBG HCO3 BUN Glucose POC Glucose Lactic Acid AST Albumin Urine Protein 30 H Urine Urobilinogen 2.0 H Urine Ascorbic Acid 40 H - EKG Interpretation by Me EKG shows normal: Sinus rhythm Rate: Tachycardia When compared to previous EKG there are: No significant change Additional EKG results interpreted by me: 05/16/20 19:12 Sinus tachycardia at a rate of 115. QTc 443. No acute ST changes. No significant change from previous EKG. Critical Care Note - Critical Care Note Total time excluding time spent on procedures (mins): 30 Comments: Upon my evaluation, this patient had a high probability of imminent or life- threatening deterioration due to sepsis which required my direct attention, intervention, and personal management. I have personally provided 30 minutes of critical care time. Time includes review of laboratory data, radiology results, discussion with consultants, and monitoring for potential decompensation. Discharge - Discharge Clinical Impression: Sepsis Qualifiers: Sepsis type: sepsis due to unspecified organism Sepsis acute organ dysfunction status: unspecified Qualified Code(s): A41.9 - Sepsis, unspecified organism Sacral decubitus ulcer Qualifiers: Pressure injury stage: stage 3 Qualified Code(s): L89.153 - Pressure ulcer of sacral region, stage 3 Condition: Serious Disposition: ADMITTED INPATIENT Admitting Provider: Opal (Hospitalist) Unit Admitted: [facility] ED Sepsis - Sepsis Documentation Sepsis Patient: Yes - Vital Signs Interpretation: Tachycardic - Cardiovascular Peripheral Pulse Strength: Normal Capillary refill: < 3 seconds Rhythm: Regular Heart Sounds: Normal auscultation - Respiratory Breath sounds: Clear Respiratory Status: No respiratory distress - Skin Skin Color: Normal - Bedside Cardiovascular Ultrasound Was a bedside Cardiovascular Ultrasound performed?: No
[2020-05-16 21:16] LABS: APPEARANCE,URINE SLIGHTLY-CLOUDY; BILIRUBIN,URINE NEGATIVE (NEGATIVE); COLOR,URINE YELLOW; GLUCOSE, URINE NEGATIVE (NEGATIVE); KETONES,URINE NEGATIVE (NEGATIVE); PROTEIN,URINE 30 mg/dL (NEGATIVE); URINE SPECIFIC GRAVITY 1.031
--- NOTE | 2020-05-16 21:42 | RADIOLOGY REPORT (SQ) ---
EXAM DESCRIPTION: CT HEAD WITHOUT IV CONTRAST COMPLETED DATE/TME: 05/16/2020 18:11 CLINICAL HISTORY: 65 years, Female, AMS COMPARISON: CT 10/21/2019. TECHNIQUE: Axial images without IV contrast. Sagittal coronal reconstruction. Images stored on PACS. All CT scanners at this facility use dose modulation, iterative reconstruction, and/or weight based dosing when appropriate to reduce radiation dose to as low as reasonably achievable (ALARA). FINDINGS: Technically limited study. Axial images provided are partially coronal. [id number] ventriculomegaly. On coronal reconstruction, maximum transverse diameter of the third ventricle is 8.5 mm. Measurement was 7.5 mm on 10/12/2019. There is mild prominence of the sulci and sylvian fissure. The sulci in the upper slices of the brain are effaced. Suspected superior cerebellar atrophy greater on the right.. No suspicious acute focal intra-axial or extra-axial abnormality. Paranasal sinuses, mastoid air cells and bony calvarium are unremarkable. IMPRESSION: 1. Ventricles are mildly large for age. Cortical sulci mildly effaced for age. Minimal change since 10/21/2019. Rule out NPH. Suggest clinical correlation. 2. No acute focal abnormality.
--- NOTE | 2020-05-16 21:57 | RADIOLOGY REPORT (SQ) ---
EXAM DESCRIPTION: CT PELVIS WITH IV CONTRAST COMPLETED DATE/TME: 05/16/2020 18:11 CLINICAL HISTORY: 65 years, Female, sacral ulcer, fever COMPARISON: None. TECHNIQUE: Axial images 46 mm of Omnipaque 350. Sagittal coronal reconstruction. Images stored on PACS. All CT scanners at this facility use dose modulation, iterative reconstruction, and/or weight based dosing when appropriate to reduce radiation dose to as low as reasonably achievable (ALARA). FINDINGS: Technically limited study with the patient's body rotated. Large pelvic mass presumably fibroid uterus with multiple coarse calcifications. The uterus measures approximately 14 x 7.5 x 8 cm. Fecal impaction the rectum. No overt stercoral colitis. Increased stool in the sigmoid colon. Sigmoid colon is compressed by the large uterus. However there is a possible area of thickening in the sigmoid colon. Series 3 image 30. Limited images of the lower abdomen suggest mild diffuse small bowel dilatation as well as upper abdominal increased colonic stool. Urinary bladder contracted and not well evaluated. Mild wall thickening is not excluded. Pelvis and proximal femur without obvious destructive bone changes. No suspicious acute fracture. There is ORIF on the left hip. There is associated chronic deformity. There is a midline moderate to prominent size decubitus ulcer. There is moderate amount of air filling the also space with relative mild soft tissue thickening the air portion of the ulcer is seen posterior to the lower sacrum and coccyx. The soft tissue portion of the ulcer is seen more inferiorly posterior to the coccyx. It is in proximity to the rectum but there is no obvious fistulous connection. No overt destructive bone changes of the sacrum and coccyx. IMPRESSION: 1. Midline decubitus ulcer described above. No suspicious liquefied abscess. No obvious osteomyelitis. 2. Large pelvic mass presumably fibroid uterus with multiple coarse calcifications. 3. Mild fecal impaction in the distal sigmoid and rectum. No obvious stercoral colitis. 4. Question thickening of the proximal/mid sigmoid versus artifact from contraction. Sigmoid mass is not excluded. 5. Increased colonic stool in the partially visualized upper abdomen. Dilated small bowel loops in the partially visualized lower abdomen.
--- NOTE | 2020-05-16 21:59 | EKG REPORT ---
SEVERITY:- ABNORMAL ECG - SINUS TACHYCARDIA ABNRM R PROG, CONSIDER ASMI OR LEAD PLACEMENT BORDERLINE T ABNORMALITIES, ANTERIOR LEADS : Confirmed by: Mariann Kemp MD 16-May-2020 21:58:32
[2020-05-17] MEDS ORDERED: NORMAL SALINE 1000 ML 1,000 ML IV ONE (00:57)
[2020-05-17] MEDS ORDERED: IPRATROPIUM/ALBUTEROL 0.5-2.5 MG/3 ML AMPUL NEB PRN (01:00)
[2020-05-17] MEDS ORDERED: ACETAMINOPHEN 650 MG SUPP.RECT PR PRN (01:00)
[2020-05-17] MEDS ORDERED: ACETAMINOPHEN 325 MG TABLET PO PRN (01:00)
[2020-05-17] MEDS ORDERED: PROMETHAZINE HCL INJ 25 MG/1 ML VIAL IV PRN (01:00)
[2020-05-17] MEDS ORDERED: TEMAZEPAM 7.5 MG CAPSULE PO PRN (01:00)
[2020-05-17] MEDS ORDERED: ONDANSETRON HCL INJ/PF 4 MG/2 ML SDV IV PRN (01:00)
[2020-05-17] MEDS ORDERED: VANCOMYCIN HCL 0 MG in DEXTROSE 5%-WATER 250 ML IV NR (01:00)
[2020-05-17] MEDS ORDERED: PIPERACILLIN SODIUM/TAZOBACTAM 4.5 GM in NORMAL SALINE 100 ML IV SCH (03:00)
[2020-05-17] MEDS: NORMAL SALINE 1000 ML 1,000 ML IV PRN ×2 (03:51→18:51)
[2020-05-17] MEDS ORDERED: METOPROLOL TARTRATE PF/INJ 5 MG/5 ML SDV IV PRN (04:39)
[2020-05-17] MEDS ORDERED: HYDRALAZINE HCL INJ/PF 20 MG/1 ML SDV IV PRN (04:39)
[2020-05-17] MEDS ORDERED: BISACODYL 10 MG SUPP.RECT PR PRN (04:50)
[2020-05-17] MEDS ORDERED: POLYETHYLENE GLYCOL 3350 POWDER 17 GM/1 PACKET PO PRN (04:50)
[2020-05-17] MEDS ORDERED: BISACODYL 10 MG SUPP.RECT PR ONE (04:50)
--- NOTE | 2020-05-17 04:50 | PDOC H&P ---
History of Present Illness Admission Date/PCP: 05/16/20 22:27 ALLYSON NDIAYE NP History of Present Illness: SOCORRO BENSON is a 65 year old female past medical history of Parkinson's disease, bedbound, dementia, depression, who lives with his brother who is his primary caregiver, patient brought to ED for worsening right sacral ulcer, altered mental status and fever. Source of history is chart review and my conversation with ED physician who had talked to her brother who is a primary caregiver. As per brother patient was noted to be less responsive today, she has been followed up by wound care for for her decubitus ulcer which as per him improving, decubitus ulcer started since March, and she has been treated with Augmentin given by PCP. Patient was noted to be hypotensive, significant leukocytosis, lactic acidosis. He head was negative for any acute abnormality, a CT pelvis showed midline decubitus ulcer no suspicion for liquefied abscess or osteomyelitis. [facility] was consulted for admission. On my encounter patient resting in bed, awake and alert however does not provide any history, does not follow any command, has severe bilateral upper and lower extremity spasticity and right sided extensive decubitus ulcer. Past Medical History Psychiatric Medical History: Reports: Dementia Denies: Depression Social History Smoking Status: Unknown if Ever Smoked Frequency of Alcohol Use: None Hx Recreational Drug Use: No Hx Prescription Drug Abuse: No Family History Family History: Reviewed & Not Pertinent Parental Family History Reviewed: Yes Children Family History Reviewed: Yes Sibling(s) Family History Reviewed.: Yes Medication/Allergy Home Medications: Donepezil HCl 10 mg PO DAILY 10/18/19 Memantine HCl [Namenda] 5 mg PO BID 10/18/19 Quetiapine Fumarate [Seroquel 25 mg Tablet] 25 mg PO HSP PRN MDD MAX OF 100MG 10/18/19 Carbidopa/Levodopa [Sinemet 25-100 mg Tablet] 1 each PO BID@0600,1200 10/19/19 Carbidopa/Levodopa [Sinemet 25-100 mg Tablet] 2 each PO QPM 10/19/19 Allergies/Adverse Reactions: shellfish derived Allergy (Verified 10/17/19 17:38) Review of Systems ROS unobtainable: Due to mental status Physical Exam Vital Signs: Temp Pulse Resp BP Pulse Ox 98.4 F 107 H 20 130/67 H 99 05/17/20 03:15 05/17/20 03:15 05/17/20 03:15 05/17/20 03:15 05/17/20 03:15 Intake & Output 05/15/20 05/16/20 05/17/20 06:59 06:59 06:59 Intake Total 1250 Balance 1250 Weight 40.8 kg General appearance: PRESENT: no acute distress, well-developed, well-nourished, other - Not communicative and responds any question. Follows minimal orders. Head exam: PRESENT: atraumatic, normocephalic Respiratory exam: PRESENT: clear to auscultation valentino. ABSENT: rales, rhonchi, wheezes Cardiovascular exam: PRESENT: RRR. ABSENT: diastolic murmur, rubs, systolic murmur GI/Abdominal exam: PRESENT: firm, normal bowel sounds, tenderness. ABSENT: distended, guarding, mass, organolmegaly, rebound Extremities exam: PRESENT: other - Right-sided infected decubitus ulcer unstageable. Neurological exam: PRESENT: alert, awake, other - Does not follow command. ABSENT: motor sensory deficit Results Laboratory Results: 05/16/20 16:08 05/16/20 16:08 05/16/20 05/16/20 05/16/20 16:08 16:08 16:50 WBC 12.2 H RBC 5.38 H Hgb 13.9 Hct 42.0 MCV 78 L MCH 25.7 L MCHC 33.0 RDW 14.5 H Plt Count 294 Seg Neutrophils % Not Reportable VBG pH VBG pCO2 VBG HCO3 VBG Base Excess Sodium 139.6 Potassium 4.0 Chloride 103 Carbon Dioxide 22 Anion Gap 15 BUN 33 H Creatinine 0.70 Est GFR ( Amer) > 60 Glucose 219 H Lactic Acid 3.8 H Calcium 9.5 Total Bilirubin 0.6 AST 45 H Alkaline Phosphatase 73 Total Protein 6.7 Albumin 3.4 L Urine Color Urine Appearance Urine pH Ur Specific [place] Urine Protein Urine Glucose (UA) Urine Ketones Urine Blood Urine RBC (Auto) 05/16/20 05/16/20 05/16/20 17:28 20:15 20:30 WBC RBC Hgb Hct MCV MCH MCHC RDW Plt Count Seg Neutrophils % VBG pH 7.48 H VBG pCO2 25.8 L VBG HCO3 18.8 L VBG Base Excess -3.0 Sodium Potassium Chloride Carbon Dioxide Anion Gap BUN Creatinine Est GFR ( Amer) Glucose Lactic Acid 2.1 Calcium Total Bilirubin AST Alkaline Phosphatase Total Protein Albumin Urine Color YELLOW Urine Appearance SLIGHTLY-CLOUDY Urine pH 5.0 Ur Specific [place] 1.031 Urine Protein 30 H Urine Glucose (UA) NEGATIVE Urine Ketones NEGATIVE Urine Blood NEGATIVE Urine RBC (Auto) 1 05/16/20 23:05 WBC RBC Hgb Hct MCV MCH MCHC RDW Plt Count Seg Neutrophils % VBG pH VBG pCO2 VBG HCO3 VBG Base Excess Sodium Potassium Chloride Carbon Dioxide Anion Gap BUN Creatinine Est GFR ( Amer) Glucose Lactic Acid 1.0 Calcium Total Bilirubin AST Alkaline Phosphatase Total Protein Albumin Urine Color Urine Appearance Urine pH Ur Specific [place] Urine Protein Urine Glucose (UA) Urine Ketones Urine Blood Urine RBC (Auto) 05/16/20 05/16/20 16:08 16:08 CK-MB (CK-2) 0.29 Troponin I < 0.012 Impressions: Chest X-Ray 05/16/20 17:04 IMPRESSION: NO ACUTE RADIOGRAPHIC FINDING IN THE CHEST. Head CT 05/16/20 18:11 IMPRESSION: 1. Ventricles are mildly large for age. Cortical sulci mildly effaced for age. Minimal change since 10/21/2019. Rule out NPH. Suggest clinical correlation. 2. No acute focal abnormality. Pelvis CT 05/16/20 18:11 IMPRESSION: 1. Midline decubitus ulcer described above. No suspicious liquefied abscess. No obvious osteomyelitis. 2. Large pelvic mass presumably fibroid uterus with multiple coarse calcifications. 3. Mild fecal impaction in the distal sigmoid and rectum. No obvious stercoral colitis. 4. Question thickening of the proximal/mid sigmoid versus artifact from contraction. Sigmoid mass is not excluded. 5. Increased colonic stool in the partially visualized upper abdomen. Dilated small bowel loops in the partially visualized lower abdomen. Assessment and Plan - Diagnosis (1) Sacral decubitus ulcer Qualifiers: Pressure injury stage: unstageable Qualified Code(s): L89.150 - Pressure ulcer of sacral region, unstageable Is this a current diagnosis for this admission?: Yes Plan: Unfortunately patient is immobile due to multiple underlying comorbidities in cluding Parkinson disease. CT pelvis negative for osteomyelitis or abscess formation. Consult surgery for possible I&D. Continue broad-spectrum empiric antibiotics. Follow-up cultures. Wound care. Discharge planning consulted for possible placement. (2) Sepsis Qualifiers: Sepsis type: sepsis due to unspecified organism Sepsis acute organ dysfunction status: unspecified Qualified Code(s): A41.9 - Sepsis, unspecified organism Is this a current diagnosis for this admission?: Yes Plan: Likely source decubitus ulcer, CT pelvis negative for osteomyelitis or abscess formation. Presented with hypotension, lactic acidosis, altered mental status, leukocytosis. Empiric broad-spectrum IV antibiotics, surgery consult for possible I&D, volume resuscitation guided by volume status, trend lactic acid, wound and blood culture. (3) Dementia Is this a current diagnosis for this admission?: Yes Plan: Resume home meds. Supportive measures. (4) Constipation Is this a current diagnosis for this admission?: Yes Plan: Likely drug-induced complicated by severe dehydration and low p.o. intake. Bowel regimen, encourage p.o. intake, monitor volume status and correct as needed. (5) Parkinsons disease Is this a current diagnosis for this admission?: Yes Plan: Resume home meds. Supportive measures. Outpatient PCP and neurology follow-up - Time Time Spent with patient: 35 or more minutes Medications reviewed and adjusted accordingly: Yes Anticipated Discharge Disposition: Jail Facility Anticipated Discharge Timeframe: within 72 hours
[2020-05-17] MEDS: HEPARIN SOD (PORCINE) 5,000 UNIT/ML 1 ML VIAL SUBCUT SCH ×3 (05:12→22:05)
[2020-05-17] MEDS ORDERED: PIPERACILLIN/TAZOBACTAM 4.5 GM VIAL IV ONE (05:51)
[2020-05-17] MEDS ORDERED: LIDOCAINE 1% INJ-PF (10 MG/ML) 30 ML SDV ONE ×2 (10:40→22:40)
[2020-05-17] MEDS: DOCUSATE SODIUM 100 MG CAPSULE PO SCH ×2 (10:50→18:57)
[2020-05-17] MEDS: POLYETHYLENE GLYCOL 3350 POWDER 17 GM/1 PACKET PO SCH (10:50)
[2020-05-17] MEDS: FAMOTIDINE 20 MG TABLET PO SCH ×2 (10:51→22:04)
[2020-05-17] MEDS: CARBIDOPA/LEVODOPA 25-100 MG TABLET PO SCH ×2 (10:54→22:05)
[2020-05-17] MEDS: VANCOMYCIN HCL 750 MG in DEXTROSE 5%-WATER 250 ML IV SCH (10:57)
[2020-05-17] MEDS: PIPERACILLIN SODIUM/TAZOBACTAM 3.375 GM in NORMAL SALINE 100 ML IV SCH ×2 (12:39→18:50)
[2020-05-17 13:55] LABS: BAND NEUTROPHILS % (MANUAL) 4 % (3-5); SEGMENTED NEUTROPHILS % (MAN) 60 % (42-78)
[2020-05-17 13:56] LABS: IMMATURE MONONUCLEAR% (MANUAL) 3 % (0); LYMPHOCYTES % (MANUAL) 12 % (13-45); MONOCYTES % (MANUAL) 12 % (3-13)
[2020-05-17 13:58] LABS: ABSOLUTE LYMPHOCYTES# (MANUAL) 1.5 10^3/uL (0.5-4.7)
[2020-05-17 14:03] LABS: ABSOLUTE MONOCYTES # (MANUAL) 1.5 10^3/uL (0.1-1.4)
--- NOTE | 2020-05-17 18:33 | PDOC PROGRESS REPORT ---
Subjective Progress Note for:: 05/17/20 Subjective:: Patient does not complain of much this morning. She is mostly silent but she is able to answer some brief statements. I was informed by Dr. Tyler that she did have hospice conversations with patients family and that they are trying to arrange for hospice through [facility]. I will follow-up with family regarding this. Reason For Visit: SEPSIS,DECUBITUS ULCER,PARKINSON Physical Exam Vital Signs: Temp Pulse Resp BP Pulse Ox 98.8 F 103 H 14 114/63 97 05/17/20 12:21 05/17/20 14:00 05/17/20 12:21 05/17/20 12:21 05/17/20 12:21 Intake & Output 05/16/20 05/17/20 05/18/20 06:59 06:59 06:59 Intake Total 2250 Output Total 200 Balance 0 Weight 41.5 kg 41.5 kg General appearance: PRESENT: no acute distress, cooperative Respiratory exam: PRESENT: unlabored. ABSENT: wheezes Neurological exam: PRESENT: alert, awake, oriented to person. ABSENT: oriented to time, oriented to situation Psychiatric exam: PRESENT: flat affect Skin exam: PRESENT: other - stage 4 decubitus ulcer Results Laboratory Results: 05/16/20 16:08 05/16/20 16:08 05/16/20 05/16/20 05/16/20 20:15 20:30 23:05 Lactic Acid 2.1 1.0 Urine Color YELLOW Urine Appearance SLIGHTLY-CLOUDY Urine pH 5.0 Ur Specific [place] 1.031 Urine Protein 30 H Urine Glucose (UA) NEGATIVE Urine Ketones NEGATIVE Urine Blood NEGATIVE Urine RBC (Auto) 1 05/16/20 05/16/20 16:08 16:08 CK-MB (CK-2) 0.29 Troponin I < 0.012 Impressions: Chest X-Ray 05/16/20 17:04 IMPRESSION: NO ACUTE RADIOGRAPHIC FINDING IN THE CHEST. Head CT 05/16/20 18:11 IMPRESSION: 1. Ventricles are mildly large for age. Cortical sulci mildly effaced for age. Minimal change since 10/21/2019. Rule out NPH. Suggest clinical correlation. 2. No acute focal abnormality. Pelvis CT 05/16/20 18:11 IMPRESSION: 1. Midline decubitus ulcer described above. No suspicious liquefied abscess. No obvious osteomyelitis. 2. Large pelvic mass presumably fibroid uterus with multiple coarse calcifications. 3. Mild fecal impaction in the distal sigmoid and rectum. No obvious stercoral colitis. 4. Question thickening of the proximal/mid sigmoid versus artifact from contraction. Sigmoid mass is not excluded. 5. Increased colonic stool in the partially visualized upper abdomen. Dilated small bowel loops in the partially visualized lower abdomen. Assessment and Plan - Diagnosis (1) Sacral decubitus ulcer Qualifiers: Pressure injury stage: unstageable Qualified Code(s): L89.150 - Pressure ulcer of sacral region, unstageable Is this a current diagnosis for this admission?: Yes (2) Constipation Is this a current diagnosis for this admission?: Yes (3) Dementia Is this a current diagnosis for this admission?: Yes (4) Parkinsons disease Is this a current diagnosis for this admission?: Yes - Plan Summary Summary: Patient is receiving IV fluids and antibiotics. She has infected sacral decubitus ulcer. As noted above, I was notified that Dr. Gamboa did see patient as outpatient and made arrangement to try to get patient into hospice. She informs me that [facility] is willing to admit patient if family is amenable. Pain control I will follow-up with family tomorrow discussing hospice care. - Time Time Spent with patient: Less than 15 minutes Anticipated Discharge Disposition: Home with Hospice Anticipated Discharge Timeframe: within 36 hours
--- NOTE | 2020-05-17 19:02 | PDOC CONSULTATION ---
Consultation Consult Date: 05/17/20 Provider Consulted: SURGICAL SURGICALIST Consult reason:: sacral and right hip decubitus ulcers History of Present Illness Admission Date/PCP: 05/16/20 22:27 ALLYSON NDIAYE NP History of Present Illness: SOCORRO BENSON is a 65 year old female seen in consultation at the request of the hospitalist service. The patient was admitted for increasing mental sta tus changes. She has Parkinson's and dementia. Surgery has been consulted to assess the patient's sacral and right hip decubitus ulcers. The patient sees the wound care clinic as an outpatient, and they have been treating these issues. Upon my evaluation, the patient is minimally responsive. She will occasionally verbalize a response to questions, however her responses do not seem appropriate. A meaningful review of systems is unobtainable. All history is obtained from the chart, nursing staff, and hospitalist group. Past Medical History Neurological Medical History: Reports: Other - Parkinson's Psychiatric Medical History: Reports: Dementia Denies: Depression Social History Smoking Status: Unknown if Ever Smoked Frequency of Alcohol Use: None Hx Recreational Drug Use: No Hx Prescription Drug Abuse: No Family History Family History: Reviewed & Not Pertinent Parental Family History Reviewed: Yes Children Family History Reviewed: Yes Sibling(s) Family History Reviewed.: Yes Medication/Allergy Home Medications: Donepezil HCl 10 mg PO QAM 10/18/19 Memantine HCl [Namenda] 5 mg PO BID 10/18/19 Quetiapine Fumarate [Seroquel 25 mg Tablet] 100 mg PO QHS 10/18/19 Carbidopa/Levodopa [Sinemet 25-100 mg Tablet] 1 tab PO QID 10/19/19 Amoxicillin/Potassium Clav [Augmentin 500-125 Tablet] 1 tab PO BID 05/17/20 Allergies/Adverse Reactions: shellfish derived Allergy (Verified 10/17/19 17:38) Review of Systems ROS unobtainable: Due to mental status Physical Exam Vital Signs: Temp Pulse Resp BP Pulse Ox 98.8 F 103 H 14 114/63 97 05/17/20 12:21 05/17/20 14:00 05/17/20 12:21 05/17/20 12:21 05/17/20 12:21 Intake & Output 05/16/20 05/17/20 05/18/20 06:59 06:59 06:59 Intake Total 2250 Output Total 200 Balance 2049 Weight 41.5 kg 41.5 kg General appearance: PRESENT: thin Head exam: PRESENT: atraumatic Eye exam: ABSENT: scleral icterus Mouth exam: PRESENT: moist, neck supple Neck exam: ABSENT: meningismus, tenderness, thyromegaly, tracheal deviation Respiratory exam: PRESENT: unlabored. ABSENT: tachypnea, wheezes Cardiovascular exam: PRESENT: tachycardia - mild GI/Abdominal exam: PRESENT: soft. ABSENT: distended, tenderness Rectal exam: PRESENT: deferred Musculoskeletal exam: PRESENT: deformity - Bilateral lower extremity contractures Neurological exam: PRESENT: awake. ABSENT: oriented to person, oriented to place, oriented to time, oriented to situation Psychiatric exam: ABSENT: agitated, anxious Focused psych exam: PRESENT: other - inappropriate speech Skin exam: PRESENT: other - Stage IV sacral decubitus ulcer with exposed tendon and muscle. There is a small amount of necrotic appearing tissue on the right lateral aspect. There is no significant infection present. Small, 2 to 3 cm eschar to the right hip. Unstageable at present. Results Laboratory Results: 05/16/20 16:08 05/16/20 16:08 05/16/20 05/16/20 05/16/20 20:15 20:30 23:05 Lactic Acid 2.1 1.0 Urine Color YELLOW Urine Appearance SLIGHTLY-CLOUDY Urine pH 5.0 Ur Specific [place] 1.031 Urine Protein 30 H Urine Glucose (UA) NEGATIVE Urine Ketones NEGATIVE Urine Blood NEGATIVE Urine RBC (Auto) 1 05/16/20 05/16/20 16:08 16:08 CK-MB (CK-2) 0.29 Troponin I < 0.012 Impressions: Chest X-Ray 05/16/20 17:04 IMPRESSION: NO ACUTE RADIOGRAPHIC FINDING IN THE CHEST. Head CT 05/16/20 18:11 IMPRESSION: 1. Ventricles are mildly large for age. Cortical sulci mildly effaced for age. Minimal change since 10/21/2019. Rule out NPH. Suggest clinical correlation. 2. No acute focal abnormality. Pelvis CT 05/16/20 18:11 IMPRESSION: 1. Midline decubitus ulcer described above. No suspicious liquefied abscess. No obvious osteomyelitis. 2. Large pelvic mass presumably fibroid uterus with multiple coarse calcifications. 3. Mild fecal impaction in the distal sigmoid and rectum. No obvious stercoral colitis. 4. Question thickening of the proximal/mid sigmoid versus artifact from contraction. Sigmoid mass is not excluded. 5. Increased colonic stool in the partially visualized upper abdomen. Dilated small bowel loops in the partially visualized lower abdomen. Assessment & Plan - Diagnosis (1) Sacral decubitus ulcer Qualifiers: Pressure injury stage: stage 4 Qualified Code(s): L89.154 - Pressure ulcer of sacral region, stage 4 Is this a current diagnosis for this admission?: Yes - Plan Summary Plan Summary: 55-year-old female with dementia and worsening mental status. She has a large, stage IV sacral decubitus ulcer. She also has a small, unstageable eschar to the right hip. I have discussed the treatment plan with Dr. Olivia, her attending physician. He believes that the family is leaning heavily towards hospice. In light of this finding, I would recommend no aggressive treatment or debridements for her decubitus ulcer. Continue with damp to dry dressing changes. Surgery will see again on an as-needed basis. Please renotify with any questions or concerns.
[2020-05-18] MEDS: PIPERACILLIN SODIUM/TAZOBACTAM 3.375 GM in NORMAL SALINE 100 ML IV SCH ×5 (01:03→23:52)
[2020-05-18] MEDS: HEPARIN SOD (PORCINE) 5,000 UNIT/ML 1 ML VIAL SUBCUT SCH (05:52)
[2020-05-18 06:46] LABS: HEMATOCRIT 31.9 % (36.0-47.0); MEAN CORPUSCULAR HEMOGLOBIN 25.9 pg (27.0-33.4); MEAN CORPUSCULAR VOLUME 76 fl (80-97); PLATELET COUNT 202 10^3/uL (150-450); RED BLOOD COUNT 4.18 10^6/uL (3.72-5.28); RED CELL DISTRIBUTION WIDTH 14.4 % (11.5-14.0); WHITE BLOOD COUNT 19.9 10^3/uL (4.0-10.5)
[2020-05-18 06:47] LABS: INTERNATIONAL RATION (INR) 1.45; PROTHROMBIN TIME 17.8 SEC (11.4-15.4)
[2020-05-18 07:09] LABS: ALBUMIN 2.6 g/dL (3.5-5.0); ALKALINE PHOSPHATASE 84 U/L (38-126); ANION GAP 10 (5-19); ASPARTATE AMINO TRANSFERASE 31 U/L (14-36); BILIRUBIN,DIRECT 0.5 mg/dL (0.0-0.4); BILIRUBIN,TOTAL 0.6 mg/dL (0.2-1.3); BLOOD UREA NITROGEN 10 mg/dL (7-20); CALCIUM 8.4 mg/dL (8.4-10.2); CARBON DIOXIDE 22 mmol/L (22-30); CHLORIDE 113 mmol/L (98-107); GLUCOSE 95 mg/dL (75-110); TOTAL PROTEIN 5.6 g/dL (6.3-8.2)
[2020-05-18 07:12] LABS: POTASSIUM 2.5 mmol/L (3.6-5.0)
[2020-05-18 07:27] LABS: HEMOGLOBIN 10.8 g/dL (12.0-15.5)
[2020-05-18 07:33] LABS: ABSOLUTE LYMPHOCYTES# (MANUAL) 5.2 10^3/uL (0.5-4.7); ABSOLUTE MONOCYTES # (MANUAL) 1.6 10^3/uL (0.1-1.4); BASOPHILS % (MANUAL) 0 % (0-2); EOSINOPHILS % (MANUAL) 0 % (0-6); IMMATURE MONONUCLEAR% (MANUAL) 3 % (0); LYMPHOCYTES % (MANUAL) 26 % (13-45); MONOCYTES % (MANUAL) 8 % (3-13); SEGMENTED NEUTROPHILS % (MAN) 63 % (42-78); TOTAL CELLS COUNTED 100
[2020-05-18 07:35] LABS: ANISOCYTOSIS SLIGHT; HYPOCHROMASIA SLIGHT; OVALOCYTES SLIGHT; PLATELET COMMENT ADEQUATE
[2020-05-18 07:38] LABS: THYROID STIMULATING HORMONE 1.32 uIU/mL (0.47-4.68)
[2020-05-18 07:40] LABS: FREE T4 (FREE THYROXINE) 1.69 ng/dL (0.78-2.19)
[2020-05-18] MEDS ORDERED: POTASSIUM CHLORIDE 10 MEQ TABLET.ER PO ONE (10:00)
[2020-05-18] MEDS ORDERED: POLYETHYLENE GLYCOL 3350 POWDER 17 GM/1 PACKET PO PRN (10:35)
--- NOTE | 2020-05-18 11:02 | PDOC PROGRESS REPORT ---
Subjective Progress Note for:: 05/18/20 Subjective:: Patient has no complaints today. Patient did not eat much of anything yesterday. I discussed with her brother and guardian who states that though he is considering hospice currently he has not decided on hospice and that he wants patient to undergo the debridement of her ulcer because the wound looks bad. He is still in the process of discussing with other family members decide on whether to pursue hospice or not. Reason For Visit: SEPSIS,DECUBITUS ULCER,PARKINSON Physical Exam Vital Signs: Temp Pulse Resp BP Pulse Ox 97.4 F 94 18 140/73 H 98 05/18/20 08:02 05/18/20 08:02 05/18/20 08:02 05/18/20 08:02 05/18/20 08:02 Intake & Output 05/17/20 05/18/20 05/19/20 06:59 06:59 06:59 Intake Total 2250 1570 Output Total 200 650 Balance 2050 920 Weight 41.5 kg 40.8 kg General appearance: PRESENT: no acute distress, cooperative Neck exam: ABSENT: JVD Respiratory exam: PRESENT: symmetrical, unlabored. ABSENT: accessory muscle use, retraction, tachypnea Cardiovascular exam: PRESENT: +S1, +S2. ABSENT: irregular rhythm, tachycardia GI/Abdominal exam: PRESENT: soft. ABSENT: rebound, rigid, tenderness Neurological exam: PRESENT: alert, awake, other - Always in contracted position. Does not do much in terms of communication. Psychiatric exam: ABSENT: agitated, anxious Results Laboratory Results: 05/18/20 06:03 05/18/20 06:03 05/18/20 05/18/20 05/18/20 06:03 06:03 06:03 WBC 19.9 H RBC 4.18 Hgb 10.8 L D Hct 31.9 L MCV 76 L MCH 25.9 L MCHC 34.0 RDW 14.4 H Plt Count 202 Seg Neutrophils % Not Reportable Sodium 145.1 H Potassium 2.5 L* Chloride 113 H Carbon Dioxide 22 Anion Gap 10 BUN 10 Creatinine 0.65 Est GFR ( Amer) > 60 Glucose 95 Calcium 8.4 Phosphorus 3.0 Magnesium 2.2 Total Bilirubin 0.6 AST 31 Alkaline Phosphatase 84 Ammonia < 8.7 L Total Protein 5.6 L Albumin 2.6 L TSH Free T4 05/18/20 06:03 WBC RBC Hgb Hct MCV MCH MCHC RDW Plt Count Seg Neutrophils % Sodium Potassium Chloride Carbon Dioxide Anion Gap BUN Creatinine Est GFR ( Amer) Glucose Calcium Phosphorus Magnesium Total Bilirubin AST Alkaline Phosphatase Ammonia Total Protein Albumin TSH 1.32 Free T4 1.69 05/16/20 05/16/20 16:08 16:08 CK-MB (CK-2) 0.29 Troponin I < 0.012 Impressions: Chest X-Ray 05/16/20 17:04 IMPRESSION: NO ACUTE RADIOGRAPHIC FINDING IN THE CHEST. Head CT 05/16/20 18:11 IMPRESSION: 1. Ventricles are mildly large for age. Cortical sulci mildly effaced for age. Minimal change since 10/21/2019. Rule out NPH. Suggest clinical correlation. 2. No acute focal abnormality. Pelvis CT 05/16/20 18:11 IMPRESSION: 1. Midline decubitus ulcer described above. No suspicious liquefied abscess. No obvious osteomyelitis. 2. Large pelvic mass presumably fibroid uterus with multiple coarse calcifications. 3. Mild fecal impaction in the distal sigmoid and rectum. No obvious stercoral colitis. 4. Question thickening of the proximal/mid sigmoid versus artifact from contraction. Sigmoid mass is not excluded. 5. Increased colonic stool in the partially visualized upper abdomen. Dilated small bowel loops in the partially visualized lower abdomen. Assessment and Plan - Diagnosis (1) Infected decubitus ulcer Qualifiers: Pressure injury stage: stage 4 Qualified Code(s): L89.94 - Pressure ulcer of unspecified site, stage 4; L08.9 - Local infection of the skin and subcutaneous tissue, unspecified Is this a current diagnosis for this admission?: Yes Plan: Discussed with Dr. Ball about proceeding with decubitus ulcer debridement as family is now opting for. We will continue damp to dry dressings. Continue IV antibiotics Pain control (2) Gram-negative bacteremia Is this a current diagnosis for this admission?: Yes Plan: Patient is now growing gram-negative sara in her blood. Likely source is infected decubitus ulcer. Urinalysis is negative. Await identification of bacteria. Continue Zosyn IV. Repeat blood cultures (3) Hypokalemia Is this a current diagnosis for this admission?: Yes Plan: Significant hypokalemia at 2.5. Will replete with 60 mEq IV KCl and put on p.o. supplements as well. I will hold her laxatives for now. Repeat BMP this afternoon and in the morning. (4) Constipation Is this a current diagnosis for this admission?: Yes Plan: Continue docusate stool softeners. Will hold laxatives for now given hypokalemia (5) Dementia Qualifiers: Dementia type: Parkinson's disease Dementia behavioral disturbance: without behavioral disturbance Qualified Code(s): G20 - Parkinson's disease; F02.80 - Dementia in other diseases classified elsewhere without behavioral disturbance Is this a current diagnosis for this admission?: Yes Plan: Continue memantine, donepezil and carbidopa levodopa I spoke to patient's guardian and brother informs me that he has not agreed to hospice just yet and would like to think about it further. He does want patient to undergo surgical debridement. Of note, if guardian becomes agreeable to hospice, [facility] has informed Dr. Gamboa at they are willing to take her. - Time Time Spent with patient: 15-24 minutes Anticipated Discharge Disposition: Home with Hospice Anticipated Discharge Timeframe: within 48 hours
[2020-05-18] MEDS: FAMOTIDINE 20 MG TABLET PO SCH ×2 (11:04→23:41)
[2020-05-18] MEDS: VANCOMYCIN HCL 750 MG in DEXTROSE 5%-WATER 250 ML IV SCH (11:05)
[2020-05-18] MEDS: POTASSIUM CHLORIDE 20 MEQ/50 ML RTU IV SCH ×3 (11:06→15:58)
--- NOTE | 2020-05-18 11:06 | ADVANCED CARE ---
- Diagnosis (1) Infected decubitus ulcer Diagnosis Current: Yes (2) Gram-negative bacteremia Diagnosis Current: Yes (5) Dementia Diagnosis Current: Yes Attendance: Yuan Patel Resuscitation Status: Do Not Resuscitate Discussion: I discussed patient's case with her brother and guardian Jarrod Patel who informs me that he has met with Dr. Sommers regarding the conversation about hospice and that he is considering it but not yet decided upon it. I discussed patient's current condition including high infected decubitus ulcer and her bacteremia. Discussed possible treatments including less aggressive treatment with antibiotics and local wound care. Yuan however opts for more aggressive management with debridement by surgery. I discussed with him the concept of hospice care and he completely voices understanding. He will further deliberate on whether he wants patient to go on hospice but is open to the conversation and seems to be leaning towards hospice. He does however reiterate that he would like the surgical debridement done even if he decides on hospice upon discharge. He also wants to continue antibiotics. He confirms CODE STATUS is DNR/DNI. Time Spent: 18mins
[2020-05-18] MEDS: DEXTROSE 5%-1/2 NORMAL SALINE 1,000 ML IV PRN (11:31)
[2020-05-18] MEDS: CARBIDOPA/LEVODOPA 25-100 MG TABLET PO SCH ×2 (11:31→23:41)
[2020-05-18] MEDS: DOCUSATE SODIUM 100 MG CAPSULE PO SCH (11:44)
[2020-05-18] MEDS: POLYETHYLENE GLYCOL 3350 POWDER 17 GM/1 PACKET PO SCH (11:45)
[2020-05-18 16:57] LABS: ANION GAP 8 (5-19); BLOOD UREA NITROGEN 11 mg/dL (7-20); CALCIUM 8.5 mg/dL (8.4-10.2); CARBON DIOXIDE 22 mmol/L (22-30); CHLORIDE 114 mmol/L (98-107); GLUCOSE 192 mg/dL (75-110)
[2020-05-18 17:05] LABS: POTASSIUM 2.9 mmol/L (3.6-5.0)
--- NOTE | 2020-05-18 22:42 | CDI QUERY ---
CDI Query CDI Review: We are seeking further clarification of documentation to reflect the severity of illness of your patient. Per H&P: Sepsis Sepsis type: sepsis due to unspecified organism Sepsis acute organ dysfunction status: unspecified Qualified Code(s): A41.9 - Sepsis, unspecified organism Is this a current diagnosis for this admission?: Yes Likely source decubitus ulcer, CT pelvis negative for osteomyelitis or abscess formation. Presented with hypotension, lactic acidosis, altered mental status, leukocytos is. Empiric broad-spectrum IV antibiotics, surgery consult for possible I&D, volume resuscitation guided by volume status, trend lactic acid, wound and blood culture. Per Progress Notes: Gram-negative bacteremia Is this a current diagnosis for this admission?: Yes Patient is now growing gram-negative sara in her blood. Likely source is infected decubitus ulcer. Urinalysis is negative. Await identification of bacteria. Continue Zosyn IV. Repeat blood cultures Based on your medical judgement, can you further clarify in the Progress Notes Sepsis confirmed (Gram negative?) Sepsis ruled out Unable to determine Other Thank you for your consideration. CAREY SarmientoN RN Clinical Professor Of Graphic Design Physician Advisor [email or web address]
--- NOTE | 2020-05-18 22:54 | CDI QUERY ---
CDI Query CDI Review: We are seeking further clarification of documentation to reflect the severity of illness of your patient. Noted in the H&P and Progress Notes: patient brought to ED for worsening right sacral ulcer, altered mental status and fever Patient was noted to be hypotensive, significant leukocytosis, lactic ac idosis Based on your medical judgement, can you further clarify in the Progress Notes if the Altered Mental Status can be further specified: Metabolic Encephalopathy Toxic Encephalopathy Altered mental status without encephalopathy Other condition (please specify) Unable to determine Thank you for your consideration. CAREY SarmientoN RN Clinical First Line Supervisor Physician Advisor [email or web address]
[2020-05-18] MEDS: MEMANTINE HCL 10 MG TABLET PO SCH (23:41)
[2020-05-18] MEDS: QUETIAPINE FUMARATE 25 MG TABLET PO SCH (23:41)
[2020-05-19] MEDS: DEXTROSE 5%-1/2 NORMAL SALINE 1,000 ML IV PRN ×3 (00:02→20:05)
[2020-05-19 00:20] LABS: ALBUMIN 2.3 g/dL (3.5-5.0); ALKALINE PHOSPHATASE 75 U/L (38-126); ANION GAP 7 (5-19); ASPARTATE AMINO TRANSFERASE 26 U/L (14-36); BILIRUBIN,DIRECT 0.3 mg/dL (0.0-0.4); BILIRUBIN,TOTAL 0.4 mg/dL (0.2-1.3); BLOOD UREA NITROGEN 10 mg/dL (7-20); CALCIUM 8.3 mg/dL (8.4-10.2); CARBON DIOXIDE 23 mmol/L (22-30); CHLORIDE 114 mmol/L (98-107); GLUCOSE 139 mg/dL (75-110)
[2020-05-19 00:22] LABS: POTASSIUM 2.9 mmol/L (3.6-5.0)
[2020-05-19] MEDS: POTASSIUM CHLORIDE 20 MEQ/50 ML RTU IV SCH ×3 (01:00→05:31)
[2020-05-19] MEDS: POTASSIUM CHLORIDE 10 MEQ TABLET.ER PO SCH ×3 (01:06→21:17)
[2020-05-19] MEDS: PIPERACILLIN SODIUM/TAZOBACTAM 3.375 GM in NORMAL SALINE 100 ML IV SCH ×3 (05:31→18:15)
[2020-05-19 06:27] LABS: HEMATOCRIT 28.9 % (36.0-47.0); MEAN CORPUSCULAR HEMOGLOBIN 26.3 pg (27.0-33.4); MEAN CORPUSCULAR HGB CONC 34.5 g/dL (32.0-36.0); MEAN CORPUSCULAR VOLUME 76 fl (80-97); PLATELET COUNT 186 10^3/uL (150-450); RED BLOOD COUNT 3.79 10^6/uL (3.72-5.28); RED CELL DISTRIBUTION WIDTH 14.6 % (11.5-14.0)
[2020-05-19 06:52] LABS: BLOOD UREA NITROGEN 8 mg/dL (7-20); CALCIUM 8.2 mg/dL (8.4-10.2); GLUCOSE 163 mg/dL (75-110); POTASSIUM 3.5 mmol/L (3.6-5.0)
[2020-05-19 06:58] LABS: CARBON DIOXIDE 24 mmol/L (22-30); CHLORIDE 116 mmol/L (98-107)
[2020-05-19 07:11] LABS: ANION GAP 4 (5-19)
[2020-05-19] MEDS: CARBIDOPA/LEVODOPA 25-100 MG TABLET PO SCH ×2 (10:04→21:17)
[2020-05-19] MEDS: VANCOMYCIN HCL 750 MG in DEXTROSE 5%-WATER 250 ML IV SCH (10:04)
[2020-05-19] MEDS: DONEPEZIL HCL 5 MG TABLET PO SCH (10:05)
[2020-05-19] MEDS: DOCUSATE SODIUM 100 MG CAPSULE PO SCH (10:05)
[2020-05-19] MEDS: MEMANTINE HCL 10 MG TABLET PO SCH ×2 (10:05→21:17)
[2020-05-19] MEDS: FAMOTIDINE 20 MG TABLET PO SCH ×2 (10:05→21:17)
[2020-05-19 10:40] LABS: VANCOMYCIN,TROUGH < 5.0 ug/mL (5.0-20.0)
[2020-05-19] MEDS ORDERED: LORAZEPAM 0.5 MG TABLET PO PRN (11:26)
[2020-05-19] MEDS ORDERED: MORPHINE SULFATE 10 MG/ML INJ IV PRN (11:32)
--- NOTE | 2020-05-19 11:34 | PDOC PROGRESS REPORT ---
Subjective Progress Note for:: 05/19/20 Subjective:: Patient not participating much in interview Reason For Visit: SEPSIS,DECUBITUS ULCER,PARKINSON Physical Exam Vital Signs: Temp Pulse Resp BP Pulse Ox 97.9 F 97 20 142/71 H 97 05/19/20 10:00 05/19/20 08:40 05/19/20 08:40 05/19/20 07:49 05/19/20 08:40 Intake & Output 05/18/20 05/19/20 05/20/20 06:59 06:59 06:59 Intake Total 1570 2500 805 Output Total 650 1475 Balance 920 1025 805 Weight 40.8 kg 41.5 kg General appearance: PRESENT: no acute distress, cooperative Neck exam: ABSENT: JVD Respiratory exam: PRESENT: symmetrical, unlabored. ABSENT: tachypnea GI/Abdominal exam: PRESENT: soft. ABSENT: rebound, rigid, tenderness Neurological exam: PRESENT: alert, awake, aphasic Psychiatric exam: ABSENT: agitated, anxious Results Laboratory Results: 05/19/20 06:10 05/19/20 06:10 05/18/20 05/18/20 05/19/20 16:30 23:48 06:10 WBC RBC Hgb Hct MCV MCH MCHC RDW Plt Count Sodium 144.1 144.0 143.5 Potassium 2.9 L* 2.9 L* 3.5 L Chloride 114 H 114 H 116 H Carbon Dioxide 22 23 24 Anion Gap 8 7 4 L BUN 11 10 8 Creatinine 0.69 0.66 0.61 Est GFR ( Amer) > 60 > 60 > 60 Glucose 192 H 139 H 163 H Calcium 8.5 8.3 L 8.2 L Magnesium 2.4 H 2.4 H Total Bilirubin 0.4 AST 26 Alkaline Phosphatase 75 Total Protein 5.0 L Albumin 2.3 L 05/19/20 06:10 WBC 21.0 H RBC 3.79 Hgb 10.0 L Hct 28.9 L MCV 76 L MCH 26.3 L MCHC 34.5 RDW 14.6 H Plt Count 186 Sodium Potassium Chloride Carbon Dioxide Anion Gap BUN Creatinine Est GFR ( Amer) Glucose Calcium Magnesium Total Bilirubin AST Alkaline Phosphatase Total Protein Albumin 05/16/20 16:50 Blood Blood Culture (PCR) - Final Staphylococcus Species 05/16/20 16:08 Blood Blood Culture - Final Prevotella Species No Aerobic Organisms 05/16/20 05/16/20 16:08 16:08 CK-MB (CK-2) 0.29 Troponin I < 0.012 Impressions: Chest X-Ray 05/16/20 17:04 IMPRESSION: NO ACUTE RADIOGRAPHIC FINDING IN THE CHEST. Head CT 05/16/20 18:11 IMPRESSION: 1. Ventricles are mildly large for age. Cortical sulci mildly effaced for age. Minimal change since 10/21/2019. Rule out NPH. Suggest clinical correlation. 2. No acute focal abnormality. Pelvis CT 05/16/20 18:11 IMPRESSION: 1. Midline decubitus ulcer described above. No suspicious liquefied abscess. No obvious osteomyelitis. 2. Large pelvic mass presumably fibroid uterus with multiple coarse calcifications. 3. Mild fecal impaction in the distal sigmoid and rectum. No obvious stercoral colitis. 4. Question thickening of the proximal/mid sigmoid versus artifact from contraction. Sigmoid mass is not excluded. 5. Increased colonic stool in the partially visualized upper abdomen. Dilated small bowel loops in the partially visualized lower abdomen. Assessment and Plan - Diagnosis (1) Infected decubitus ulcer Qualifiers: Pressure injury stage: stage 4 Qualified Code(s): L89.94 - Pressure ulcer of unspecified site, stage 4; L08.9 - Local infection of the skin and subcutaneous tissue, unspecified Is this a current diagnosis for this admission?: Yes Plan: Patient's son has decided to go with hospice. Patient to be discharged tomorrow on hospice. He also wants to forego any further surgical procedures at this time. Continue IV antibiotics-we will switch to oral upon discharge. Local wound care. Pain control (2) Gram-negative bacteremia Is this a current diagnosis for this admission?: Yes Plan: Prevotella species likely source is infected decubitus ulcer. Urinalysis is negative. Continue Zosyn IV. (3) Hypokalemia Is this a current diagnosis for this admission?: Yes Plan: Improved. Continue KCl supplements. (4) Constipation Is this a current diagnosis for this admission?: Yes Plan: Continue docusate stool softeners. (5) Dementia Qualifiers: Dementia type: Parkinson's disease Dementia behavioral disturbance: without behavioral disturbance Qualified Code(s): G20 - Parkinson's disease; F02.80 - Dementia in other diseases classified elsewhere without behavioral disturbance Is this a current diagnosis for this admission?: Yes Plan: Continue memantine, donepezil and carbidopa levodopa Plan is for discharge to hospice tomorrow [facility] - Time Anticipated Discharge Disposition: Home with Hospice Anticipated Discharge Timeframe: within 24 hours
[2020-05-19] MEDS: VANCOMYCIN HCL 500 MG in DEXTROSE 5%-WATER 100 ML IV SCH ×2 (14:29→22:00)
[2020-05-19] MEDS: HEPARIN SOD (PORCINE) 5,000 UNIT/ML 1 ML VIAL SUBCUT SCH ×2 (14:31→21:54)
[2020-05-19] MEDS: QUETIAPINE FUMARATE 25 MG TABLET PO SCH (21:17)
[2020-05-19] MEDS ORDERED: VANCOMYCIN HCL INJ 500 MG VIAL ONE (21:29)
[2020-05-20] MEDS: PIPERACILLIN SODIUM/TAZOBACTAM 3.375 GM in NORMAL SALINE 100 ML IV SCH ×4 (00:37→18:16)
[2020-05-20] MEDS: HEPARIN SOD (PORCINE) 5,000 UNIT/ML 1 ML VIAL SUBCUT SCH ×3 (05:01→21:23)
[2020-05-20] MEDS: DONEPEZIL HCL 5 MG TABLET PO SCH (10:01)
[2020-05-20] MEDS: DOCUSATE SODIUM 100 MG CAPSULE PO SCH (10:01)
[2020-05-20] MEDS: POTASSIUM CHLORIDE 10 MEQ TABLET.ER PO SCH ×2 (10:01→21:04)
[2020-05-20] MEDS: FAMOTIDINE 20 MG TABLET PO SCH ×2 (10:02→21:05)
[2020-05-20] MEDS: CARBIDOPA/LEVODOPA 25-100 MG TABLET PO SCH ×2 (10:02→21:05)
[2020-05-20] MEDS: MEMANTINE HCL 10 MG TABLET PO SCH ×2 (10:02→21:05)
[2020-05-20] MEDS: VANCOMYCIN HCL 500 MG in DEXTROSE 5%-WATER 100 ML IV SCH ×2 (10:07→21:23)
[2020-05-20] MEDS: DEXTROSE 5%-1/2 NORMAL SALINE 1,000 ML IV PRN (10:08)
--- NOTE | 2020-05-20 12:16 | PDOC DISCHARGE SUMMARY ---
Impression - Admit/DC Date/PCP Admission Date/Primary Care Provider: 05/16/20 22:27 ALLYSON NDIAYE NP Discharge Date: 05/20/20 - Discharge Diagnosis (1) Infected decubitus ulcer Is this a current diagnosis for this admission?: Yes (2) Gram-negative bacteremia Is this a current diagnosis for this admission?: Yes (3) Advanced dementia Is this a current diagnosis for this admission?: Yes (4) Hypokalemia Is this a current diagnosis for this admission?: Yes (5) Constipation Is this a current diagnosis for this admission?: Yes (6) Sepsis Is this a current diagnosis for this admission?: Yes (7) Parkinsons disease Is this a current diagnosis for this admission?: Yes (8) Hospice care Is this a current diagnosis for this admission?: Yes - Additional Information Resuscitation Status: Do Not Resuscitate Discharge Diet: As Tolerated, Regular Discharge Activity: Activity As Tolerated Referrals: ALLYSON NDIAYE NP, MANAGEMENT ACCOUNTS MANAGER [Primary Care Provider] - Follow up as needed Prescriptions: Lorazepam [Ativan 0.5 mg Tablet] 0.5 mg PO Q6HP PRN #15 tablet PRN Reason: Amoxicillin/Potassium Clav [Augmentin 500-125 Tablet] 1 each PO TID 10 Days #30 tablet Docusate Sodium 100 mg PO DAILY #30 tablet Morphine Sulfate [Morphine Ir 15 mg Tablet] 15 mg PO TIDP PRN #7 tablet PRN Reason: Potassium Chloride 20 meq PO DAILY #10 tab.er.prt Home Medications: Quetiapine Fumarate [Seroquel 25 mg Tablet] 100 mg PO QHS 10/18/19 Carbidopa/Levodopa [Sinemet 25-100 mg Tablet] 1 tab PO QID 10/19/19 Amoxicillin/Potassium Clav [Augmentin 500-125 Tablet] 1 each PO TID 10 Days #30 tablet 05/20/20 Docusate Sodium 100 mg PO DAILY #30 tablet 05/20/20 Lorazepam [Ativan 0.5 mg Tablet] 0.5 mg PO Q6HP PRN #15 tablet 05/20/20 Morphine Sulfate [Morphine Ir 15 mg Tablet] 15 mg PO TIDP PRN #7 tablet 05/20/20 Potassium Chloride 20 meq PO DAILY #10 tab.er.prt 05/20/20 History of Present Illiness History of Present Illness: According to admitting provider: SOCORROKISHAN BENSON is a 65 year old female past medical history of Parkinson's disease, bedbound, dementia, depression, who lives with his brother who is his primary caregiver, patient brought to ED for worsening right sacral ulcer, altered mental status and fever. Source of history is chart review and my conversation with ED physician who had talked to her brother who is a primary caregiver. As per brother patient was noted to be less responsive today, she has been followed up by wound care for for her decubitus ulcer which as per him improving, decubitus ulcer started since March, and she has been treated with Augmentin given by PCP. Patient was noted to be hypotensive, significant leukocytosis, lactic acidosis. He head was negative for any acute abnormality, a CT pelvis showed midline decubitus ulcer no suspicion for liquefied abscess or osteomyelitis. Hospitalist was consulted for admission. On my encounter patient resting in bed, awake and alert however does not provide any history, does not follow any command, has severe bilateral upper and lower extremity spasticity and right sided extensive decubitus ulcer. Hospital Course Hospital Course: Patient was admitted to the hospital for questionable change in mental status. It is unclear if this was truly metabolic encephalopathy secondary to sepsis or if this was just rather delirium secondary to infected decubitus ulcer especially given her underlying advanced dementia. She was noted to have sepsis upon presentation. Has significant leukocytosis as well. She was started on IV antibiotics. Surgery was consulted for debridement of infected stage IV decubitus ulcer. Blood cultures were obtained which grew Prevotella and staph species. Further conversation was had with patient's guardian and brother Yuan who initially opted to proceed with surgical debridement of the decubitus ulcer but later changed his mind and stated that he wanted to just make a hospice and forego the procedure. Patient was continued on antibiotics and she will be discharged home with oral antibiotics, pain medication and antianxiety medication. Discharge planning will notify [facility] hospice care who had already agreed to take patient. Patient also notably treated for constipation and hypokalemia will be discharged home with supplements as well as stool so ftener. I have confirmed plan with patient's brother today and he is willing to take patient home today as well. He notifies me that he himself has contacted the customer support representative at [facility] who states she will be able to come to the house today or tomorrow. Physical Exam Vital Signs: Temp Pulse Resp BP Pulse Ox 98.1 F 83 16 144/95 H 97 05/20/20 10:00 05/20/20 07:00 05/20/20 03:16 05/20/20 03:16 05/20/20 03:16 Intake & Output 05/19/20 05/20/20 05/21/20 06:59 06:59 06:59 Intake Total 2500 1907 1000 Output Total 1475 1700 Balance 4623 618 6769 Weight 41.5 kg 40.9 kg General appearance: PRESENT: no acute distress, cooperative Neck exam: ABSENT: JVD Respiratory exam: PRESENT: unlabored. ABSENT: tachypnea Neurological exam: PRESENT: alert, awake Skin exam: PRESENT: other - Decubitus ulcer foul-smelling Results Laboratory Results: WBC 21.0 10^3/uL (4.0-10.5) H 05/19/20 06:10 RBC 3.79 10^6/uL (3.72-5.28) 05/19/20 06:10 Hgb 10.0 g/dL (12.0-15.5) L 05/19/20 06:10 Hct 28.9 % (36.0-47.0) L 05/19/20 06:10 MCV 76 fl (80-97) L 05/19/20 06:10 MCH 26.3 pg (27.0-33.4) L 05/19/20 06:10 MCHC 34.5 g/dL (32.0-36.0) 05/19/20 06:10 RDW 14.6 % (11.5-14.0) H 05/19/20 06:10 Plt Count 186 10^3/uL (150-450) 05/19/20 06:10 Lymph % (Auto) Not Reportable 05/18/20 06:03 Long % (Auto) Not Reportable 05/18/20 06:03 Eos % (Auto) Not Reportable 05/18/20 06:03 Baso % (Auto) Not Reportable 05/18/20 06:03 Absolute Neuts (auto) Not Reportable 05/18/20 06:03 Absolute Lymphs (auto) Not Reportable 05/18/20 06:03 Absolute Monos (auto) Not Reportable 05/18/20 06:03 Absolute Eos (auto) Not Reportable 05/18/20 06:03 Absolute Basos (auto) Not Reportable 05/18/20 06:03 Total Counted 100 05/18/20 06:03 Seg Neutrophils % Not Reportable 05/18/20 06:03 Seg Neuts % (Manual) 63 % (42-78) 05/18/20 06:03 Band Neutrophils % 4 % (3-5) 05/16/20 16:08 Lymphocytes % (Manual) 26 % (13-45) 05/18/20 06:03 Atypical Lymphs % 9 % (0) 05/16/20 16:08 Monocytes % (Manual) 8 % (3-13) 05/18/20 06:03 Eosinophils % (Manual) 0 % (0-6) 05/18/20 06:03 Basophils % (Manual) 0 % (0-2) 05/18/20 06:03 Immature Leukocytes % 3 % (0) H 05/18/20 06:03 Abs Neuts (Manual) 12.5 10^3/uL (1.7-8.2) H 05/18/20 06:03 Abs Lymphs (Manual) 5.2 10^3/uL (0.5-4.7) H 05/18/20 06:03 Abs Monocytes (Manual) 1.6 10^3/uL (0.1-1.4) H 05/18/20 06:03 Absolute Eos (Manual) 0.0 10^3/uL (0.0-0.6) 05/18/20 06:03 Abs Basophils (Manual) 0.0 10^3/uL (0.0-0.2) 05/18/20 06:03 Toxic Granulation SLIGHT 05/16/20 16:08 Toxic Vacuolation PRESENT 05/16/20 16:08 Platelet Comment ADEQUATE 05/18/20 06:03 Hypochromasia SLIGHT 05/18/20 06:03 Anisocytosis SLIGHT 05/18/20 06:03 Microcytosis SLIGHT 05/18/20 06:03 Ovalocytes SLIGHT 05/18/20 06:03 PT 17.8 SEC (11.4-15.4) H 05/18/20 06:03 INR 1.45 05/18/20 06:03 VBG pH 7.48 (7.30-7.42) H 05/16/20 17:28 VBG pCO2 25.8 mmHg (35-63) L 05/16/20 17:28 VBG HCO3 18.8 mmol/L (20-32) L 05/16/20 17:28 VBG Base Excess -3.0 mmol/L 05/16/20 17:28 Sodium 143.5 mmol/L (137-145) 05/19/20 06:10 Potassium 3.5 mmol/L (3.6-5.0) L 05/19/20 06:10 Chloride 116 mmol/L (98-107) H 05/19/20 06:10 Carbon Dioxide 24 mmol/L (22-30) 05/19/20 06:10 Anion Gap 4 (5-19) L 05/19/20 06:10 BUN 8 mg/dL (7-20) 05/19/20 06:10 Creatinine 0.61 mg/dL (0.52-1.25) 05/19/20 06:10 Est GFR ( Amer) > 60 (>60) 05/19/20 06:10 Est GFR (MDRD) Non-Af > 60 (>60) 05/19/20 06:10 Glucose 163 mg/dL (75-110) H 05/19/20 06:10 POC Glucose 111 mg/dL (70-110) H 05/20/20 08:03 Lactic Acid 1.0 mmol/L (0.7-2.1) 05/16/20 23:05 Calcium 8.2 mg/dL (8.4-10.2) L 05/19/20 06:10 Phosphorus 3.0 mg/dL (2.5-4.5) 05/18/20 06:03 Magnesium 2.4 mg/dL (1.6-2.3) H 05/19/20 06:10 Total Bilirubin 0.4 mg/dL (0.2-1.3) 05/18/20 23:48 Direct Bilirubin 0.3 mg/dL (0.0-0.4) 05/18/20 23:48 Neonat Total Bilirubin Not Reportable 05/18/20 23:48 Neonat Direct Bilirubin Not Reportable 05/18/20 23:48 Neonat Indirect Bili Not Reportable 05/18/20 23:48 AST 26 U/L (14-36) 05/18/20 23:48 ALT 22 U/L (<35) 05/18/20 23:48 Alkaline Phosphatase 75 U/L (38-126) 05/18/20 23:48 Ammonia < 8.7 umol/L (9-33) L 05/18/20 06:03 CK-MB (CK-2) 0.29 ng/mL (<4.55) 05/16/20 16:08 Troponin I < 0.012 ng/mL 05/16/20 16:08 Total Protein 5.0 g/dL (6.3-8.2) L 05/18/20 23:48 Albumin 2.3 g/dL (3.5-5.0) L 05/18/20 23:48 TSH 1.32 uIU/mL (0.47-4.68) 05/18/20 06:03 Free T4 1.69 ng/dL (0.78-2.19) 05/18/20 06:03 Urine Color YELLOW 05/16/20 20:30 Urine Appearance SLIGHTLY-CLOUDY 05/16/20 20:30 Urine pH 5.0 (5.0-9.0) 05/16/20 20:30 Ur Specific [place] 1.031 05/16/20 20:30 Urine Protein 30 mg/dL (NEGATIVE) H 05/16/20 20:30 Urine Glucose (UA) NEGATIVE mg/dL (NEGATIVE) 05/16/20 20:30 Urine Ketones NEGATIVE mg/dL (NEGATIVE) 05/16/20 20:30 Urine Blood NEGATIVE (NEGATIVE) 05/16/20 20:30 Urine Nitrite (Reflex) NEGATIVE (NEGATIVE) 05/16/20 20:30 Urine Bilirubin NEGATIVE (NEGATIVE) 05/16/20 20:30 Urine Urobilinogen 2.0 mg/dL (<2.0) H 05/16/20 20:30 Leukocyte Esterase Rfl NEGATIVE (NEGATIVE) 05/16/20 20:30 Urine RBC (Auto) 1 /HPF 05/16/20 20:30 Urine WBC (Reflex) 1 /HPF 05/16/20 20:30 Urine Mucus (Auto) RARE /LPF 05/16/20 20:30 Urine Ascorbic Acid 40 (NEGATIVE) H 05/16/20 20:30 Time Trough Drawn 0905/19/20 09:58 Vancomycin Trough < 5.0 ug/mL (5.0-20.0) L 05/19/20 09:58 Slides for Path Review SEE COMMENT 05/16/20 16:08 05/16/20 05/16/20 16:08 16:08 CK-MB (CK-2) 0.29 Troponin I < 0.012 Impressions: Chest X-Ray 05/16/20 17:04 IMPRESSION: NO ACUTE RADIOGRAPHIC FINDING IN THE CHEST. Head CT 05/16/20 18:11 IMPRESSION: 1. Ventricles are mildly large for age. Cortical sulci mildly effaced for age. Minimal change since 10/21/2019. Rule out NPH. Suggest clinical correlation. 2. No acute focal abnormality. Pelvis CT 05/16/20 18:11 IMPRESSION: 1. Midline decubitus ulcer described above. No suspicious liquefied abscess. No obvious osteomyelitis. 2. Large pelvic mass presumably fibroid uterus with multiple coarse calcifications. 3. Mild fecal impaction in the distal sigmoid and rectum. No obvious stercoral colitis. 4. Question thickening of the proximal/mid sigmoid versus artifact from contraction. Sigmoid mass is not excluded. 5. Increased colonic stool in the partially visualized upper abdomen. Dilated small bowel loops in the partially visualized lower abdomen. Plan Time Spent: Greater than 30 Minutes Stroke Is this a Stroke Patient?: No Acute Heart Failure Is this a Heart Failure Patient?: No
[2020-05-20] MEDS: QUETIAPINE FUMARATE 25 MG TABLET PO SCH (21:05)
[2020-05-21] MEDS: PIPERACILLIN SODIUM/TAZOBACTAM 3.375 GM in NORMAL SALINE 100 ML IV SCH ×2 (00:09→05:21)
[2020-05-21] MEDS: DEXTROSE 5%-1/2 NORMAL SALINE 1,000 ML IV PRN (01:37)
[2020-05-21 04:45] VITALS: BP 148/95
[2020-05-21] MEDS: HEPARIN SOD (PORCINE) 5,000 UNIT/ML 1 ML VIAL SUBCUT SCH (05:21)
[2020-05-21] MEDS: DONEPEZIL HCL 5 MG TABLET PO SCH (09:19)
[2020-05-21] MEDS: DOCUSATE SODIUM 100 MG CAPSULE PO SCH (09:19)
[2020-05-21] MEDS: VANCOMYCIN HCL 500 MG in DEXTROSE 5%-WATER 100 ML IV SCH (09:20)
[2020-05-21] MEDS: MEMANTINE HCL 10 MG TABLET PO SCH (09:20)
[2020-05-21] MEDS: CARBIDOPA/LEVODOPA 25-100 MG TABLET PO SCH (09:20)
[2020-05-21] MEDS: POTASSIUM CHLORIDE 10 MEQ TABLET.ER PO SCH (09:20)
[2020-05-21] MEDS: FAMOTIDINE 20 MG TABLET PO SCH (09:20)
--- NOTE | 2020-05-21 10:10 | PDOC PROGRESS REPORT ---
Subjective Progress Note for:: 05/21/20 Subjective:: Not able to provide some subjective Reason For Visit: SEPSIS,DECUBITUS ULCER,PARKINSON Physical Exam Vital Signs: Temp Pulse Resp BP Pulse Ox 98.0 F 76 16 148/95 H 100 05/21/20 08:04 05/21/20 07:00 05/21/20 03:31 05/21/20 03:31 05/21/20 03:31 Intake & Output 05/20/20 05/21/20 05/22/20 06:59 06:59 06:59 Intake Total 1907 1999 Output Total 1700 1625 Balance 207 375 Weight 40.9 kg 45.5 kg Results Laboratory Results: 05/19/20 06:10 05/19/20 06:10 05/16/20 16:50 Blood Blood Culture (PCR) - Final Staphylococcus Species 05/16/20 05/16/20 16:08 16:08 CK-MB (CK-2) 0.29 Troponin I < 0.012 Impressions: Chest X-Ray 05/16/20 17:04 IMPRESSION: NO ACUTE RADIOGRAPHIC FINDING IN THE CHEST. Head CT 05/16/20 18:11 IMPRESSION: 1. Ventricles are mildly large for age. Cortical sulci mildly effaced for age. Minimal change since 10/21/2019. Rule out NPH. Suggest clinical correlation. 2. No acute focal abnormality. Pelvis CT 05/16/20 18:11 IMPRESSION: 1. Midline decubitus ulcer described above. No suspicious liquefied abscess. No obvious osteomyelitis. 2. Large pelvic mass presumably fibroid uterus with multiple coarse calcifications. 3. Mild fecal impaction in the distal sigmoid and rectum. No obvious stercoral colitis. 4. Question thickening of the proximal/mid sigmoid versus artifact from contraction. Sigmoid mass is not excluded. 5. Increased colonic stool in the partially visualized upper abdomen. Dilated small bowel loops in the partially visualized lower abdomen. Assessment and Plan - Diagnosis (1) Infected decubitus ulcer Qualifiers: Pressure injury stage: stage 4 Qualified Code(s): L89.94 - Pressure ulcer of unspecified site, stage 4; L08.9 - Local infection of the skin and subcutaneous tissue, unspecified Is this a current diagnosis for this admission?: Yes (2) Gram-negative bacteremia Is this a current diagnosis for this admission?: Yes (3) Advanced dementia Is this a current diagnosis for this admission?: Yes (4) Hypokalemia Is this a current diagnosis for this admission?: Yes (5) Constipation Is this a current diagnosis for this admission?: Yes (6) Sepsis Qualifiers: Sepsis type: sepsis due to unspecified organism Sepsis acute organ dysfun ction status: unspecified Qualified Code(s): A41.9 - Sepsis, unspecified organism Is this a current diagnosis for this admission?: Yes (7) Parkinsons disease Is this a current diagnosis for this admission?: Yes (8) Hospice care Is this a current diagnosis for this admission?: Yes - Plan Summary Summary: Patient being discharged today on hospice care. [facility] with [facility]. Will be discharged with a few more days of antibiotics. - Time Time Spent with patient: Less than 15 minutes Anticipated Discharge Disposition: Home with Hospice Anticipated Discharge Timeframe: within 24 hours
== END 2020-05-21 10:19 | disposition hospice, home (50) | DRG 871 ==
LOC: ER 16:31 → EH 22:27 → 3S 05-17 01:18
PROVIDERS: ADMIT Internal Medicine; ATTEND Internal Medicine
DX: A41.59 Other Gram-negative sepsis (principal); L89.154 Pressure ulcer of sacral region, stage 4; G93.41 Metabolic encephalopathy; Z66 Do not resuscitate; G20 Parkinson's disease; F02.80 Dementia in other diseases classified elsewhere, unspecified severity, without behavioral disturbance, psychotic disturbance, mood disturbance, and anxiety; F32.9 Major depressive disorder, single episode, unspecified; B96.89 Other specified bacterial agents as the cause of diseases classified elsewhere; Z91.013 Allergy to seafood; E86.0 Dehydration; K59.03 Drug induced constipation; L89.210 Pressure ulcer of right hip, unstageable; E87.6 Hypokalemia; Z79.899 Other long term (current) drug therapy; Z74.01 Bed confinement status
CPT/HCPCS: 36415; 70450; 71045; 72193; 80048; 80053; 80202; 81001; 82140; 82553; 82803; 82962; 83605; 83735; 84100; 84439; 84443; 84484; 85025; 85027; 85610; 87040; 87070; 87077; 87150; 87186; 93005; 93010; 96361; 96365; 96367; 99291; J1644; J2543; J3370; J3480; J3490; J7030; J7050; J7060